=== PATIENT | female | born 1985 | race Caucasian/White ===

== ENCOUNTER 2016-12-24 09:17 | Day surgery (SDC) | payer OTHER ==
[2013-06-29 06:40] VITALS: BP 140/78
[2016-12-24] MEDS ORDERED: DIPRIVAN 200 MG/20 ML IV ONE (10:00)
[2016-12-24] MEDS ORDERED: XYLOCAINE 1% HCL 20 ML MDV ONE (11:20)
--- NOTE | 2016-12-24 13:57 | XRAY ---
Indication: Left L2-L5 MBB. Intraoperative fluoroscopy was provided for 18 seconds. Single digital spot image submitted for interpretation demonstrates 4 posterior spinal needles with the tips adjacent to the left L2-L5 superior facets. Correlate with intraoperative findings/report.
--- NOTE | 2016-12-24 14:36 | XRAY ---
18 seconds of fluoroscopy was used in surgery for a left MBB L2-L5.
[2016-12-24] MEDS ORDERED: Sensorcaine 0.25% 10 ML IJ ONE (15:25)
[2016-12-24] MEDS ORDERED: Kenalog-40 IM ONE (15:25)
[2016-12-24] MEDS ORDERED: Xylocaine 1% Vial 30 ML PF IJ ONE (15:25)
[2016-12-24] MEDS ORDERED: Lactated Ringers IV ONE (15:25)
== END 2016-12-24 12:00 | disposition home or self-care (01) ==
LOC: SDC-PAIN 09:17
PROVIDERS: ATTEND Pain Medicine Interventional Pain Medicine
DX: M47.814 Spondylosis without myelopathy or radiculopathy, thoracic region (principal); M54.5 Low back pain; Z79.891 Long term (current) use of opiate analgesic; M70.72 Other bursitis of hip, left hip
CPT/HCPCS: 64493; 64494; 64495; 72020; 77003; 84703; J2001; J2704; J3301

== ENCOUNTER 2017-01-28 12:18 | Day surgery (SDC) | payer OTHER ==
[2013-06-29 06:40] VITALS: BP 140/78
[~2017-01-28 12:18] MED LIST: DIPRIVAN 200 MG/20 ML IV ONE; Kenalog-40 IM ONE; Lactated Ringers 1,000 ML IV ONE; Sensorcaine 0.25% 10 ML IJ ONE
--- NOTE | 2017-01-28 16:35 | XRAY ---
Indication: Right L2-L5 MBB. Intraoperative fluoroscopy was provided for 13 seconds. Single digital spot image submitted for interpretation demonstrates posterior spinal needles with the tips projecting over the expected course of the right L2-L5 nerve roots. Correlate with intraoperative findings/report.
--- NOTE | 2017-01-28 17:01 | XRAY ---
13 seconds fluoroscopy time in surgery for right L2-5 MBB.
== END 2017-01-28 15:30 | disposition home or self-care (01) ==
LOC: SDC-PAIN 12:18
PROVIDERS: ATTEND Pain Medicine Interventional Pain Medicine
DX: M47.816 Spondylosis without myelopathy or radiculopathy, lumbar region (principal); M54.5 Low back pain; M70.72 Other bursitis of hip, left hip
CPT/HCPCS: 64493; 64494; 64495; 72020; 77003; 84703; J2704; J3301

== ENCOUNTER 2017-03-25 12:09 | Emergency (ER) | payer OTHER ==
[2017-03-25] MEDS ORDERED: TORAdol 30 mg Injection IM ONE (12:39)
--- NOTE | 2017-03-25 12:44 | ERPHSYRPT ---
- History of Present Illness Time Seen by Provider: 03/25/17 12:39 Source: patient Patient Subjective Stated Complaint: co pain to right side of neck woke her up this morning, no injury noted, states pain from right side of neck that radiates down to shoulder and arm Triage Nursing Assessment: pt alert, walked in ,resp easy, no injury noted to neck or arm.,opt is guarding right arm Physician History: 31-year-old white female with history of chronic back pain who is on Jesup also history of migraines polycystic ovary disease. Arrives with complaint of pain on the right lateral and posterior neck right posterior back thoracic region symptoms since awakening this morning. She denies any injury. She is not short of breath she has no chest pain. Past medical history includes migraines, polycystic ovary disease. Timing/Duration: today Severity: moderate Modifying Factors: Improves With: movement Associated Symptoms: other (right-sided back and necck pain since this morning) , No nausea, No vomiting, No abdominal pain, No shortness of breath, No heartburn, No diaphoresis, No cough, No chills, No chest pain, No fever, No headaches, No loss of appetite, No malaise, No rash, No syncope, No seizure, No weakness Allergies/Adverse Reactions: Penicillins Allergy (Verified 03/25/17 12:29) SHE TAKEN AMOXICILLIN Home Medications: Fluoxetine HCl [Prozac] 20 mg PO DAILY 01/26/15 [History] Spironolactone 100 mg PO DAILY 07/13/15 [History] Medroxyprogesterone Acet [Qaiyigr53 mg] 10 mg PO DAILY 01/15/16 [History] Phentermine HCl [Adipex-P] 37.5 mg PO DAILY 01/15/16 [History] Ropinirole HCl 0.5 mg [Requip 0.5 MG] 1 mg PO DAILY 01/15/16 [History] Hydrocodone Bit/Acetaminophen [[place] 5/325Mg] 1 each PO Q6HPRN PRN 11/06/16 [ History] Metformin HCl 500 mg [Glucophage 500 MG] 500 mg BID 03/25/17 [History] Hx Tetanus, Diphtheria Vaccination/Date Given: Yes (UP TO DATE) Hx Influenza Vaccination/Date Given: Yes Hx Pneumococcal Vaccination/Date Given: No Immunizations Up to Date: Yes - Review of Systems Constitutional: No Fever, No Chills Eyes: No Symptoms Ears, Nose, & Throat: No Symptoms Respiratory: No Cough, No Dyspnea Cardiac: No Chest Pain, No Edema, No Syncope Abdominal/Gastrointestinal: No Abdominal Pain, No Nausea, No Vomiting, No Diarrhea Genitourinary Symptoms: No Dysuria Musculoskeletal: Back Pain, Neck Pain, No Deformity, No Fall, No Injury, No Joint Redness, No Joint Pain, No Joint Swelling, No Myalgias Skin: No Rash Neurological: No Dizziness, No Focal Weakness, No Sensory Changes Psychological: No Symptoms Endocrine: No Symptoms All Other Systems: Reviewed and Negative - Past Medical History Pertinent Past Medical History: Yes Neurological History: Migraines ENT History: No Pertinent History Cardiac History: No Pertinent History Respiratory History: No Pertinent History Endocrine Medical History: No Pertinent History Musculoskeletal History: Other GI Medical History: No Pertinent History History: No Pertinent History Female Reproductive Disorders: Other Other Medical History: polycysitic ovarian disease,chronic back pain - Past Surgical History Past Surgical History: No - Social History Smoking Status: Current some day smoker How long have you smoked: 14 Exposure to second hand smoke: No Drug Use: none Patient Lives Alone: No - Female History Hx Last Menstrual Period: 2 months ago Hx Now: No - Nursing Vital Signs Nursing Vital Signs: Initial Vital Signs Temperature 97.8 F Temperature Source Oral Pulse Rate 72 Respiratory Rate 16 Blood Pressure [Left Arm] 135/73 Pain Intensity 8 - Physical Exam General Appearance: mild distress Eye Exam: PERRL/EOMI, eyes nml inspection Ears, Nose, Throat Exam: normal ENT inspection, TMs normal, pharynx normal, moist mucous membranes Neck Exam: normal inspection, supple, other (Right lateral and posterior neck, tender with palpation and movement) Respiratory Exam: normal breath sounds, lungs clear, No respiratory distress Cardiovascular Exam: regular rate/rhythm, normal heart sounds, normal peripheral pulses Gastrointestinal/Abdomen Exam: soft, normal bowel sounds, No tenderness, No mass Back Exam: other (right posterior thoracic region tender with palpation and movement) Extremity Exam: other (decreased range of motion right shoulder secondary to pain in right neck) Neurologic Exam: alert, oriented x 3, cooperative, normal mood/affect, nml cerebellar function, nml station & gait, sensation nml, No motor deficits Skin Exam: normal color, warm, dry, No rash SpO2 Interpretation: normal (98%) SpO2: 98 Oxygen Delivery: Room Air - Course Nursing assessment & vital signs reviewed: Yes - Radiology Exams C-Spine X-ray Interpretation: Discussed w/ radiologist (Cervical spine x-ray : 1. No acute cervical spine fracture, subluxation or prevertebral soft tissue swelling , 2. No significant arthritic changes are seen with in the cervical spine, however, there is mild reversal of the normal cervical lordosis at C4 C5. This may be due to some posterior paravertebral muscle spasm) Chest X-ray Interpretation: Discussed w/ radiologist (chest x-ray no acute cardiopulmonary process is seen) Ordered Tests: Active Orders 24 hr Category Date Time Status CERVICAL SPINE (2 OR 3 VIEW) Stat Exams 03/25/17 12:38 Completed CHEST 2 VIEWS (PA AND LAT) Stat Exams 03/25/17 12:38 Completed HCG QUALITATIVE,SERUM Stat Lab 03/25/17 12:53 Completed Medication Summary Discontinued Medications Generic Name Dose Route Start Last Admin Trade Name Danyel PRN Reason Stop Dose Admin Ketorolac Tromethamine 60 mg 03/25/17 12:39 03/25/17 13:02 Toradol 30 Mg Injection IM 03/25/17 12:40 60 mg STAT ONE Administration Ketorolac Tromethamine Confirm 03/25/17 12:55 Toradol 30 Mg Injection Administered 03/25/17 12:56 Dose 60 mg .ROUTE .STK-MED ONE Lab/Rad Data: Laboratory Results 03/25/17 Range/Units 12:53 Serum , Qual NEGATIVE (Negative) - Progress Progress: improved Progress Note: 03/25/17 14:46 Patient's x-ray of the cervical spine is no acute fracture positive lordosis suspicious for muscle spasm. Patient's x-ray chest no acute cardiopulmonary process is seen. Patient is given Toradol not completely pain-free. Patient was offered Norflex injection she prefers to take oral medications at home. Patient was also offered morphine she declined this. Patient is on Jesup at home we'll have her continue this medication she takes is chronically Will send home with norflex and Naprosyn. 03/25/17 14:51 03/25/17 14:53 Patient was given a computerized prescription for Norflex I did not fill in the quantity therefore I did this manually patient will be given Norflex 100 mg #10 to be taken one orally twice a day. - Departure Time of Disposition: 14:47 Departure Disposition: Home Clinical Impression: Neck pain, musculoskeletal, Cervical paraspinal muscle spasm Back pain Qualifiers: Back pain location: back pain in unspecified location Chronicity: unspecified Back pain laterality: unspecified Qualified Code(s): M54.9 - Dorsalgia, unspecified Condition: Fair Critical Care Time: No Instructions: Cervical Strain Additional Instructions: Return home. norflex 100 mg orally twice a day for 5 days. Naprosyn 500 mg orally twice a day with food as needed for pain #20. Continue oral narcotic analgesics as prescribed by your family doctor/pain quality control expert. Follow-up with your family doctor if symptoms are worse, no better in 48 hours, or persist longer than one week. Return for acute distress or for severe symptoms. Prescriptions: Naproxen [Naprosyn] 500 mg PO BIDWMEALS #20 tablet Orphenadrine Citrate 100 mg [Norflex 100 MG Tablet] 100 mg PO BID #0 tab
[2017-03-25] MEDS ORDERED: TORAdol 30 mg Injection ONE (12:55)
--- NOTE | 2017-03-25 14:08 | XRAY ---
Exam: Two-view chest from 03/25/2017. Comparison: None. Indication: Right-sided back and neck pain. Findings: Upright PA and lateral chest films were obtained. The heart size and contour are normal. The belkis and mediastinal structures appear unremarkable. There is adequate inflation of the lungs. The pulmonary vascularity is normal. The lungs are clear. No pneumothorax or pleural fluid is seen. No acute osseous abnormality is seen. Impression: 1. No acute cardiopulmonary process is seen.
--- NOTE | 2017-03-25 14:14 | XRAY ---
Exam: 3 view cervical spine series from 03/25/2017. Comparison: None. Indication: Right-sided neck and back pain. Findings: AP, open-mouth odontoid, lateral, and a lateral swimmer's view of the cervical spine were obtained. There is slight reversal of the normal lordosis of the cervical spine on the lateral film centered at C4-C5. Correlate clinically regarding posterior paravertebral muscular spasm. I see no acute cervical spine fracture, AP subluxation, or prevertebral soft tissue swelling. The cervical interspace heights are well-maintained. The preodontoid space is normal. No cervical ribs are seen. The uncovertebral joints appear unremarkable. The odontoid process is slightly closer to the lateral mass of C1 on the right as compared to the left. This is probably due to slight patient head rotation. Impression: 1. I see no acute cervical spine fracture, AP subluxation, or prevertebral soft tissue swelling. 2. No significant arthritic changes are seen within the cervical spine. However, there is mild reversal of the normal cervical lordosis centered at C4-C5. This may be due to some posterior paravertebral muscular spasm.
[2017-03-25 14:49] VITALS: O2SAT 98
[2017-03-25 14:56] VITALS: BP 134/80; PULSE 95
== END 2017-03-25 15:04 | disposition home or self-care (01) ==
LOC: ED 12:09
DX: M54.9 Dorsalgia, unspecified (principal); M54.2 Cervicalgia; M79.1 Myalgia; M62.838 Other muscle spasm; Z79.891 Long term (current) use of opiate analgesic; Z79.899 Other long term (current) drug therapy
CPT/HCPCS: 36415; 71020; 72040; 84703; 96372; 99284; J1885

== ENCOUNTER 2017-11-20 06:14 | Emergency (ER) | payer OTHER ==
[2017-11-20 06:25] VITALS: BP 128/98; PULSE 81; O2SAT 97
--- NOTE | 2017-11-20 06:40 | ERPHSYRPT ---
- History of Present Illness Time Seen by Provider: 11/20/17 06:27 Source: patient Exam Limitations: no limitations Patient Subjective Stated Complaint: Left hand and wrist pain Triage Nursing Assessment: Pt presents to the ED with complaints of left hand and wrist pain. Pt states she grabbed an item at work yesterday when the pain began. Pt denies trauma to the hand or wrist. Pt denies other complaints. No distress noted, skin PWD, A&O x4. Physician History: 32-year-old white female arrives with complaint of pain in her left wrist radiating to her hands and upper left arm symptoms since yesterday began while reaching for a clipboard at work. She feels like her left wrist and hand are swollen. She denies any injury. Past medical history includes polycystic ovaries, chronic back pain . Occurred: yesterday Method of Injury: other (reaching for clipboard at work) Quality: constant Severity of Pain-Max: moderate Severity of Pain-Current: moderate (on) Extremities Pain Location: wrist: left, thumb: left, 2nd finger: left, 3rd finger: left Modifying Factors: Improves With: nothing Associated Symptoms: none Allergies/Adverse Reactions: Penicillins Allergy (Verified 03/25/17 12:29) SHE TAKEN AMOXICILLIN Home Medications: Fluoxetine HCl [Prozac] 20 mg PO DAILY 01/26/15 [History] Spironolactone 100 mg PO DAILY 07/13/15 [History] Phentermine HCl [Adipex-P] 37.5 mg PO DAILY 01/15/16 [History] Ropinirole HCl 0.5 mg [Requip 0.5 MG] 1 mg PO DAILY 01/15/16 [History] Hydrocodone Bit/Acetaminophen [[place] 5/325Mg] 1 each PO Q6HPRN PRN 11/06/16 [ History] Metformin HCl 500 mg [Glucophage 500 MG] 500 mg BID 03/25/17 [History] Meloxicam [Mobic] 15 mg PO 10/20/17 [History] Tizanidine HCl 4 mg [Zanaflex 4 MG] 4 mg PO 10/20/17 [History] Hx Tetanus, Diphtheria Vaccination/Date Given: Yes Hx Influenza Vaccination/Date Given: Yes Hx Pneumococcal Vaccination/Date Given: No Immunizations Up to Date: Yes - Review of Systems Constitutional: No Fever, No Chills Eyes: No Symptoms Ears, Nose, & Throat: No Symptoms Respiratory: No Cough, No Dyspnea Cardiac: No Chest Pain, No Edema, No Syncope Abdominal/Gastrointestinal: No Abdominal Pain, No Nausea, No Vomiting, No Diarrhea Genitourinary Symptoms: No Dysuria Musculoskeletal: Other (pain in her left wrist radiating up left fingers 1,2,3 occasionally radiating up her leftarm) Skin: No Rash Neurological: No Dizziness, No Focal Weakness, No Sensory Changes Psychological: No Symptoms Endocrine: No Symptoms All Other Systems: Reviewed and Negative - Past Medical History Pertinent Past Medical History: Yes Neurological History: Migraines ENT History: No Pertinent History Cardiac History: No Pertinent History Respiratory History: No Pertinent History Endocrine Medical History: No Pertinent History Musculoskeletal History: Other GI Medical History: No Pertinent History History: No Pertinent History Female Reproductive Disorders: Other Other Medical History: polycysitic ovarian disease,chronic back pain - Past Surgical History Past Surgical History: No - Social History Smoking Status: Current every day smoker How long have you smoked: 15 years Exposure to second hand smoke: Yes Drug Use: none Patient Lives Alone: No - Female History Hx Last Menstrual Period: 11/05/2017 Hx Now: No - Nursing Vital Signs Nursing Vital Signs: Initial Vital Signs Temperature 97.8 F 11/20/17 06:18 Pulse Rate 81 11/20/17 06:18 Respiratory Rate 16 11/20/17 06:18 Blood Pressure 128/98 11/20/17 06:18 O2 Sat by Pulse Oximetry 97 11/20/17 06:18 Pain Scale Pain Intensity 10 - Physical Exam General Appearance: alert Eyes, Ears, Nose, Throat Exam: moist mucous membranes Neck Exam: non-tender, supple Cardiovascular/Respiratory Exam: chest non-tender, normal breath sounds, regular rate/rhythm, no respiratory distress Abdominal Exam: non-tender, No guarding Back Exam: normal inspection, No vertebral tenderness Shoulder Exam: normal inspection, non-tender, no evidence of injury, normal ROM Elbow/Forearm Exam: normal inspection, non-tender, no evidence of injury, normal ROM Wrist Exam: No normal inspection (left wrist tender with percussion anteriorly, decreased range of motion left wrist secondary to pain, full range of motion left fingers, sensation intact left fingers, left radial ulnar pulses intact 2 / 4, sensation intactleft fingers good capillary refill left fingers, Phalen's negative left wrist, atenolol's pain with percussion only left wrist) Hand Exam: normal inspection, non-tender, no evidence of injury, normal ROM Neuro/Tendon Exam: normal sensation, normal motor functions Mental Status Exam: alert, oriented x 3, cooperative Skin Exam: normal color, warm, dry SpO2 Interpretation: normal (97%) SpO2: 97 Oxygen Delivery: Room Air - Course Nursing assessment & vital signs reviewed: Yes - Radiology Exams Left Wrist X-ray Interpretation: Interpreted by me, No Fracture, No Subluxation Ordered Tests: Active Orders 24 hr Category Date Time Status EKG-ER Only STAT Care 11/20/17 07:14 Inactive Splint STAT Care 11/20/17 07:06 Active WRIST (MIN 3 VIEWS) Stat Exams 11/20/17 06:35 Taken HCG QUALITATIVE,SERUM Stat Lab 11/20/17 06:49 Completed Respiratory Nebulizer STAT RT 11/20/17 07:13 Inactive Medication Summary Discontinued Medications Generic Name Dose Route Start Last Admin Trade Name Danyel PRN Reason Stop Dose Admin Albuterol/Ipratropium 3 ml 11/20/17 07:12 Duoneb 0.5-3 Mg/3 Ml Neb IH 11/20/17 07:13 STAT ONE Albuterol/Ipratropium Confirm 11/20/17 07:24 Duoneb 0.5-3 Mg/3 Ml Neb Administered 11/20/17 07:25 Dose 3 ml IH .STK-MED ONE Ceftriaxone Sodium/Dextrose 1 g in 50 mls @ 100 mls/hr 11/20/17 07:12 Rocephin 1 Gm-D5w 50 Ml Bag IV 11/20/17 07:41 STAT STA Methylprednisolone Sodium Succinate 125 mg 11/20/17 07:12 Solu-Medrol 125 Mg IV 11/20/17 07:13 STAT ONE Lab/Rad Data: Laboratory Results 11/20/17 Range/Units 06:49 Serum , Qual NEGATIVE (Negative) - Departure Time of Disposition: 07:35 Departure Disposition: Home Clinical Impression: Wrist pain, left Condition: Fair Critical Care Time: No Referrals: FRANCY TALAVERA [Primary Care Provider] - Additional Instructions: Return home. Ice and elevate your left wrist 24-48 hours. Wear wristlet for one week. continue mobic as prescribed by tour family doctor, Follow-up with your company physician. Return for acute distress or for severe symptoms.
[2017-11-20] MEDS ORDERED: solu-MEDROL 125 MG IV ONE (07:12)
[2017-11-20] MEDS ORDERED: ROCEPHIN 1 Gm-D5w 50 ml Bag** 1 G/50 ML IVPB IV STA (07:12)
[2017-11-20] MEDS ORDERED: DUONEB 0.5-3 MG/3 ml Neb IH ONE ×2 (07:12→07:24)
--- NOTE | 2017-11-20 09:38 | XRAY ---
Indication: Pain. No known injury. Comparison: None 3 views of the left wrist demonstrates shortening of the ulna at least 6-7 mm relative to the radius favoring negative ulnar variance, commonly associated with [place]ienb[place] disease and ulnar impingement syndrome. No other bony, articular, or soft tissue abnormalities.
== END 2017-11-20 07:57 | disposition home or self-care (01) ==
LOC: ED 06:14
DX: M25.532 Pain in left wrist (principal); X50.1XXA Overexertion from prolonged static or awkward postures, initial encounter; Y99.0 Civilian activity done for income or pay; Z79.899 Other long term (current) drug therapy
CPT/HCPCS: 36415; 73110; 84703; 99282; L3908; A9270-GY

== ENCOUNTER 2017-12-13 19:09 | Emergency (ER) | payer OTHER ==
[2017-12-13] MEDS ORDERED: PROVENTIL 2.5 MG/3 ML NEB IH ONE ×2 (19:37→19:50)
[2017-12-13] MEDS ORDERED: Sodium Chloride 0.9% 1000 ML 1,000 ML IV STA (19:44)
--- NOTE | 2017-12-13 19:44 | ERPHSYRPT ---
- History of Present Illness Time Seen by Provider: 12/13/17 19:28 Historian: patient Exam Limitations: no limitations Patient Subjective Stated Complaint: pt states she thinks she has a uti, states she has been having urinary frequency and lower back pain on lt side. had fever at home of 102.4 Triage Nursing Assessment: pt alert and oriented, answers questions approp. pt ambulatory with limping gait noted- pt states d/t chronic back pain. respirations nonlabored with lungs cta. abd soft and nontender. bowel sounds present. urine cloudy yellow. Physician History: FOR THE PAST 6 DAYS PT HAS HAD URINARY URGENCY; FOR THE PAST 4 DAYS A NON- PRODUCTIVE COUGH; TODAY VOMITING X1 WITHOUT BLOOD, LEFT LOWER BACK PAIN, FRONTAL HEADACHE AND FEVER UP TO 102.4 DEGREES. PT HAS HAD CHRONIC LOWER MID ABDOMINAL PAIN FOR YEARS WHICH HAS INCREASED TODAY. LAST BM WAS YESTERDAY & WNL. Allergies/Adverse Reactions: No Known Drug Allergies Allergy (Verified 12/13/17 19:33) Home Medications: Fluoxetine HCl [Prozac] 20 mg PO DAILY 01/26/15 [History] Spironolactone 100 mg PO DAILY 07/13/15 [History] Phentermine HCl [Adipex-P] 37.5 mg PO DAILY 01/15/16 [History] Ropinirole HCl 0.5 mg [Requip 0.5 MG] 1 mg PO DAILY 01/15/16 [History] Hydrocodone Bit/Acetaminophen [[place] 5/325Mg] 1 each PO Q12H PRN PRN 11/06/16 [ History] Metformin HCl 500 mg [Glucophage 500 MG] 500 mg BID 03/25/17 [History] Meloxicam [Mobic] 15 mg PO BID 10/20/17 [History] Tizanidine HCl 4 mg [Zanaflex 4 MG] 4 mg PO HS 10/20/17 [History] Omeprazole 20 MG [Prilosec 20 mg] 20 mg PO DAILY 12/07/17 [History] Hx Tetanus, Diphtheria Vaccination/Date Given: Yes Hx Influenza Vaccination/Date Given: Yes Hx Pneumococcal Vaccination/Date Given: No Immunizations Up to Date: Yes - Review of Systems Constitutional: Fever Respiratory: Cough, No Dyspnea Cardiac: No Chest Pain Abdominal/Gastrointestinal: Abdominal Pain, Vomiting, No Diarrhea Genitourinary Symptoms: Urgency Musculoskeletal: Back Pain Neurological: Headache All Other Systems: Reviewed and Negative - Past Medical History Pertinent Past Medical History: Yes Neurological History: Migraines ENT History: No Pertinent History Cardiac History: No Pertinent History Respiratory History: No Pertinent History Endocrine Medical History: No Pertinent History Musculoskeletal History: Other GI Medical History: No Pertinent History History: No Pertinent History Female Reproductive Disorders: Other Other Medical History: polycysitic ovarian disease,chronic back pain - Past Surgical History Past Surgical History: No - Social History Smoking Status: Current every day smoker How long have you smoked: 15 years Exposure to second hand smoke: Yes Drug Use: none Patient Lives Alone: No - Female History Hx Last Menstrual Period: last month- irreg Hx Now: No - Nursing Vital Signs Nursing Vital Signs: Initial Vital Signs Temperature 99.4 F 12/13/17 19:18 Pulse Rate 108 H 12/13/17 19:18 Respiratory Rate 18 12/13/17 19:18 Blood Pressure 104/90 12/13/17 19:18 O2 Sat by Pulse Oximetry 99 12/13/17 19:18 Pain Scale Pain Intensity 5 - Physical Exam General Appearance: alert Eye Exam: PERRL/EOMI Ears, Nose, Throat Exam: TMs normal, pharynx normal, moist mucous membranes Neck Exam: normal inspection Respiratory Exam: wheezing (SCATTERED EXPIRATORY WHEEZING) Cardiovascular Exam: normal heart sounds Gastrointestinal/Abdomen Exam: soft, normal bowel sounds, tenderness (MILD SUPRAPUBIC TENDERNESS), No guarding Back Exam: normal range of motion, No CVA tenderness Extremity Exam: normal inspection, No pedal edema Neurologic Exam: alert, cooperative Skin Exam: warm, dry SpO2 Interpretation: normal SpO2: 99 Oxygen Delivery: Room Air - Course Nursing assessment & vital signs reviewed: Yes Ordered Tests: Active Orders 24 hr Category Date Time Status IV Insertion STAT Care 12/13/17 19:44 Active AMYLASE Stat Lab 12/13/17 20:09 Completed CBC W DIFF Stat Lab 12/13/17 20:09 Completed CMP Stat Lab 12/13/17 20:09 Completed CULTURE,URINE Stat Lab 12/13/17 19:43 Received HCG QUALITATIVE,SERUM Stat Lab 12/13/17 20:09 Completed LIPASE Stat Lab 12/13/17 20:09 Completed MAGNESIUM Stat Lab 12/13/17 20:09 Completed UA W/ MICROSCOPIC Stat Lab 12/13/17 19:43 Completed Respiratory Nebulizer STAT RT 12/13/17 19:38 Completed Medication Summary Discontinued Medications Generic Name Dose Route Start Last Admin Trade Name Danyel PRN Reason Stop Dose Admin Acetaminophen Confirm 12/13/17 21:49 Tylenol 325 Mg Administered 12/13/17 21:50 Dose 650 mg .ROUTE .STK-MED ONE Acetaminophen 650 mg 12/13/17 21:52 12/13/17 21:54 Tylenol 325 Mg PO 12/13/17 21:53 650 mg STAT STA Administration Albuterol Sulfate 2.5 mg 12/13/17 19:37 12/13/17 19:53 Proventil 2.5 Mg/3 Ml Neb IH 12/13/17 19:38 2.5 mg STAT ONE Administration Albuterol Sulfate Confirm 12/13/17 19:50 Proventil 2.5 Mg/3 Ml Neb Administered 12/13/17 19:51 Dose 2.5 mg IH .STK-MED ONE Sodium Chloride 1,000 mls @ 999 mls/hr 12/13/17 19:44 12/13/17 20:12 Sodium Chloride 0.9% 1000 Ml IV 12/13/17 20:44 999 mls/hr .Q1H1M STA Administration Sodium Chloride Confirm 12/13/17 20:10 Sodium Chloride 0.9% 1000 Ml Administered 12/13/17 20:11 Dose 1,000 mls @ ud .ROUTE .STK-MED ONE Ceftriaxone Sodium/Dextrose 1 g in 50 mls @ 100 mls/hr 12/13/17 20:51 20:56 Rocephin 1 Gm-D5w 50 Ml Bag IV 12/13/17 21:20 100 mls/hr STAT STA Administration Ceftriaxone Sodium/Dextrose Confirm 12/13/17 20:55 Rocephin 1 Gm-D5w 50 Ml Bag Administered 12/13/17 20:56 Dose 1 g in 50 mls @ ud IV .STK-MED ONE Lab/Rad Data: Laboratory Result Diagrams 12/13/17 20:09 12/13/17 20:09 Laboratory Results 12/13/17 12/13/17 12/13/17 Range/Units 20:09 20:09 20:09 WBC (4.0-10.5) K/mm3 RBC (4.1-5.4) M/mm3 Hgb (12.0-16.0) gm/dl Hct (35-47) % MCV (78-100) fl MCH (26-32) pg MCHC (32-36) g/dl RDW (11.5-14.0) % Plt Count (150-450) K/mm3 MPV (6-9.5) fl Gran % (36.0-66.0) % Lymphocytes % (24.0-44.0) % Monocytes % (0.0-12.0) % Eosinophils % (0.00-5.0) % Basophils % (0.0-0.4) % Basophils # (0-0.4) Sodium 138 (137-145) mmol/L Potassium 3.7 (3.5-5.1) mmol/L Chloride 98 (98-107) mEq/L Carbon Dioxide 30 (22-30) mmol/L Anion Gap 13.7 (5-15) MEQ/L BUN 12 (7-17) mg/dl Creatinine 0.94 (0.52-1.04) mg/dl Estimated GFR > 60 ML/MIN Glucose 101 (74-106) mg/dL Calcium 9.4 (8.4-10.2) mg/dL Magnesium 1.9 (1.6-2.3) mg/dL Total Bilirubin 0.40 (0.2-1.3) mg/d? AST 19 (14-36) U/L ALT 22 (0-35) U/L Alkaline Phosphatase 58 (38-126) U/L Serum Total Protein 7.5 (6.3-8.2) mg/dl Albumin 4.2 (3.5-5.0) g/dl Amylase 40 (30-110) U/L Lipase 40 (23-300) U/L Serum , Qual NEGATIVE (Negative) Ur Collection Type Urine Color (YELLOW) Urine Appearance (CLEAR) Urine pH (5-6) Ur Specific [place] (1.005-1.025) Urine Protein (Negative) Urine Ketones (NEGATIVE) Urine Blood (0-5) Chris/ul Urine Nitrite (NEGATIVE) Urine Bilirubin (NEGATIVE) Urine Urobilinogen (0-1) mg/dL Ur Leukocyte Esterase (NEGATIVE) Urine Microscopic RBC (0-2) /HPF Urine Microscopic WBC (0-5) /HPF Ur Epithelial Cells (FEW) /HPF Urine Bacteria (NEGATIVE) /HPF Urine Culture Reflexed (NO) Urine Glucose (NEGATIVE) mg/dL Specimen Received 12/13/17 12/13/17 Range/Units 20:09 19:43 WBC 10.6 H (4.0-10.5) K/mm3 RBC 4.98 (4.1-5.4) M/mm3 Hgb 14.4 (12.0-16.0) gm/dl Hct 43.2 (35-47) % MCV 86.7 (78-100) fl MCH 28.9 (26-32) pg MCHC 33.3 (32-36) g/dl RDW 14.0 (11.5-14.0) % Plt Count 282 (150-450) K/mm3 MPV 10.3 H (6-9.5) fl Gran % 77.9 H (36.0-66.0) % Lymphocytes % 11.6 L (24.0-44.0) % Monocytes % 9.7 (0.0-12.0) % Eosinophils % 0.6 (0.00-5.0) % Basophils % 0.2 (0.0-0.4) % Basophils # 0.02 (0-0.4) Sodium (137-145) mmol/L Potassium (3.5-5.1) mmol/L Chloride (98-107) mEq/L Carbon Dioxide (22-30) mmol/L Anion Gap (5-15) MEQ/L BUN (7-17) mg/dl Creatinine (0.52-1.04) mg/dl Estimated GFR ML/MIN Glucose (74-106) mg/dL Calcium (8.4-10.2) mg/dL Magnesium (1.6-2.3) mg/dL Total Bilirubin (0.2-1.3) mg/d? AST (14-36) U/L ALT (0-35) U/L Alkaline Phosphatase (38-126) U/L Serum Total Protein (6.3-8.2) mg/dl Albumin (3.5-5.0) g/dl Amylase (30-110) U/L Lipase (23-300) U/L Serum , Qual (Negative) Ur Collection Type CLEAN CATCH Urine Color YELLOW (YELLOW) Urine Appearance SLIGHTLY CLOUDY (CLEAR) Urine pH 6.0 (5-6) Ur Specific [place] 1.010 (1.005-1.025) Urine Protein TRACE (Negative) Urine Ketones NEGATIVE (NEGATIVE) Urine Blood 250 (0-5) Chris/ul Urine Nitrite POSITIVE (NEGATIVE) Urine Bilirubin NEGATIVE (NEGATIVE) Urine Urobilinogen NORMAL (0-1) mg/dL Ur Leukocyte Esterase 2+ (NEGATIVE) Urine Microscopic RBC 5-10 (0-2) /HPF Urine Microscopic WBC 50-100 (0-5) /HPF Ur Epithelial Cells MODERATE (FEW) /HPF Urine Bacteria FEW (NEGATIVE) /HPF Urine Culture Reflexed YES (NO) Urine Glucose NEGATIVE (NEGATIVE) mg/dL Specimen Received 12/13/171944 - Progress Progress Note: 12/13/17 22:24 LUNGS CLEAR AFTER ALBUTEROL TX. - Departure Time of Disposition: 22:29 Departure Disposition: Home Clinical Impression: UTI Condition: Stable Critical Care Time: No Referrals: FRANCY TALAVERA [Primary Care Provider] - Instructions: Urinary Tract Infection, Adult (DC) Additional Instructions: FOLLOW UP WITH PRIVATE DOCTOR TOMORROW. Prescriptions: Promethazine HCl 25 mg [Phenergan 25 mg] 25 mg PO Q4H PRN PRN #14 tablet PRN Reason: Nausea/Vomiting Phenazopyridine HCl 200 mg [Pyridium 200 mg] 200 mg PO TID #7 tablet Smz/Tmp Ds Tablet [Bactrim Ds Tablet] 1 udtab PO BID #20 tablet
[2017-12-13] MEDS ORDERED: Sodium Chloride 0.9% 1000 ML 1,000 ML ONE (20:10)
[2017-12-13 20:14] LABS: BASOPHIL % 0.2 % (0.0-0.4); Basophil (Absolute #) 0.02 (0-0.4); Eosinophil % 0.6 % (0.00-5.0); Eosinophil (Absolute #) 0.06 (0-0.5); Granulocytes % 77.9 % (36.0-66.0); Hematocrit 43.2 % (35-47); Hemoglobin 14.4 gm/dl (12.0-16.0); Lymphocyte (Absolute #) 1.23 (1.0-4.6); Lymphocytes % 11.6 % (24.0-44.0); Mean Cell Volume 86.7 fl (78-100); Mean Corpuscular Hemoglobin 28.9 pg (26-32); Mean Corpuscular Hgb Concent. 33.3 g/dl (32-36); Mean Platelet Volume 10.3 fl (6-9.5); Monocyte (Absolute #) 1.03 (0.0-1.3); Monocytes % 9.7 % (0.0-12.0); Platelet Count 282 K/mm3 (150-450); Red Blood Count 4.98 M/mm3 (4.1-5.4); White Blood Count 10.6 K/mm3 (4.0-10.5)
[2017-12-13 20:20] LABS: Appearance SLIGHTLY CLOUDY (CLEAR); Bilirubin NEGATIVE (NEGATIVE); Blood 250 Ery/ul (0-5); Glucose NEGATIVE (NEGATIVE); Ketones NEGATIVE (NEGATIVE); Leukocyte Esterase 2+ (NEGATIVE); Nitrite POSITIVE (NEGATIVE); Protein,Urine Dip TRACE (Negative); Urobilinogen NORMAL mg/dL (0-1)
[2017-12-13 20:21] LABS: Bacteria FEW /HPF (NEGATIVE); Epithelial Cells MODERATE /HPF (FEW); WBC 50-100 /HPF (0-5)
[2017-12-13 20:35] LABS: ALBUMIN 4.2 g/dl (3.5-5.0); ALKALINE PHOSPHATASE 58 U/L (38-126); AMYLASE 40 U/L (30-110); ANION GAP 13.7 MEQ/L (5-15); BLOOD UREA NITROGEN 12 mg/dl (7-17); CHLORIDE 98 mEq/L (98-107); Calcium 9.4 mg/dL (8.4-10.2); Carbon Dioxide 30 mmol/L (22-30); Creatinine 1 0.94 mg/dl (0.52-1.04); Glucose 101 mg/dL (74-106); LIPASE 40 U/L (23-300); Potassium 3.7 mmol/L (3.5-5.1); SGOT/AST 19 U/L (14-36); SGPT/ALT 22 U/L (0-35); SODIUM 138 mmol/L (137-145); Total Protein 7.5 mg/dl (6.3-8.2)
[2017-12-13] MEDS ORDERED: ROCEPHIN 1 Gm-D5w 50 ml Bag** 1 G/50 ML IVPB IV STA (20:51)
[2017-12-13] MEDS ORDERED: ROCEPHIN 1 Gm-D5w 50 ml Bag** 1 G/50 ML IVPB IV ONE (20:55)
[2017-12-13] MEDS ORDERED: TYLENOL 325 MG ONE (21:49)
[2017-12-13] MEDS ORDERED: TYLENOL 325 MG PO STA (21:52)
[2017-12-13 23:12] VITALS: BP 130/82; PULSE 92; O2SAT 100
== END 2017-12-13 22:45 | disposition home or self-care (01) ==
LOC: ED 19:09
DX: N39.0 Urinary tract infection, site not specified (principal); R05 Cough; M54.5 Low back pain; R51 Headache
CPT/HCPCS: 36000; 36415; 80053; 81000; 82150; 83690; 83735; 84703; 85025; 87086; 94640; 96360; 96365; 99283; 99284; J0696; A9270-GY

== ENCOUNTER 2018-05-28 18:54 | Emergency (ER) | payer SELFPAY ==
[2018-05-28] MEDS ORDERED: MOTRIN 400 MG PO ONE (19:16)
[2018-05-28] MEDS ORDERED: KEFLEX 500 MG PO ONE (19:16)
[2018-05-28] MEDS ORDERED: KEFLEX 500 MG ONE (19:18)
[2018-05-28] MEDS ORDERED: MOTRIN 400 MG ONE (19:19)
--- NOTE | 2018-05-28 19:19 | ERPHSYRPT ---
- History of Present Illness Time Seen by Provider: 05/28/18 19:12 Source: patient Patient Subjective Stated Complaint: fell on picture frame and cut right hand Triage Nursing Assessment: Pt fell over laundry and landed on a picture frame and cut her right hand on medial side, no other issues Physician History: PATIENT WITH A HISTORY OF CHRONIC BACK PAIN AND DEPRESSION, TRIPPED OVER HER CLOTHES AND SUSTAINED LACERATION TO HER RIGHT HAND OF GLASS FRAME. DENIES ASSOCIATED HEAD, NECK OR BACK INJURY, NUMBNESS, TINGLING IN DIGITS. Occurred: just prior to arrival Method of Injury: direct blow, fell Quality: constant Severity of Pain-Max: moderate Severity of Pain-Current: moderate Extremities Pain Location: wrist: right, hand: right Modifying Factors: Improves With: movement Allergies/Adverse Reactions: No Known Drug Allergies Allergy (Verified 05/28/18 19:07) Home Medications: Fluoxetine HCl [Prozac] 30 mg PO DAILY 01/26/15 [History] RX: Spironolactone 25 mg PO DAILY 07/13/15 [History] Ropinirole HCl 0.5 mg [Requip 0.5 MG] 2 mg PO DAILY 01/15/16 [History] Hydrocodone Bit/Acetaminophen [[place] 5/325Mg] 1 each PO Q12H PRN PRN 11/06/16 [ History] RX: Metformin HCl 500 mg [Glucophage 500 MG] 500 mg BID 03/25/17 [History] Hx Tetanus, Diphtheria Vaccination/Date Given: (couple of years ago) Hx Influenza Vaccination/Date Given: Yes Hx Pneumococcal Vaccination/Date Given: No - Review of Systems Constitutional: No Fever, No Chills Respiratory: No Cough, No Dyspnea Cardiac: No Chest Pain, No Edema, No Syncope Abdominal/Gastrointestinal: No Abdominal Pain, No Nausea, No Vomiting, No Diarrhea Genitourinary Symptoms: No Dysuria Musculoskeletal: Injury, Joint Pain, Joint Swelling, No Back Pain, No Neck Pain Skin: No Rash Neurological: No Dizziness, No Focal Weakness, No Sensory Changes Psychological: No Symptoms - Past Medical History Pertinent Past Medical History: Yes Neurological History: Migraines ENT History: No Pertinent History Cardiac History: No Pertinent History Respiratory History: Asthma Endocrine Medical History: No Pertinent History Musculoskeletal History: Degenerative Disk Disease, Other GI Medical History: No Pertinent History History: No Pertinent History Female Reproductive Disorders: Other Other Medical History: history of buldging disc. - Past Surgical History Past Surgical History: No Other Surgical History: medial blocks - Social History Smoking Status: Current every day smoker How long have you smoked: 15 years Exposure to second hand smoke: Yes Drug Use: none Patient Lives Alone: No - Female History Hx Last Menstrual Period: 6 months ago Hx Now: No (PCOS) - Nursing Vital Signs Nursing Vital Signs: Initial Vital Signs Temperature 98.6 F 05/28/18 18:59 Pulse Rate 71 05/28/18 18:59 Blood Pressure 157/112 05/28/18 18:59 O2 Sat by Pulse Oximetry 100 05/28/18 18:59 Pain Scale Pain Intensity 8 - Physical Exam General Appearance: alert Wrist Exam: normal inspection, soft tissue tenderness (TENDERNESS DORSUM RIGHT WRIST ULNAR ASPECT, NO SWELLING OR CREPITUS OR ECCHYMOSIS) Hand Exam: soft tissue tenderness, swelling (THERE IS A 1.5CM RIGHT MID 5TH METACARPAL, NO ECCHYMOSIS OR CREPITUS, FULL RANGE OF MOTION ALL DIGITS.) DTR - Upper Extremity Exam: bicep (R): 2+, bicep (L): 2+, tricep (R): 2+, tricep (L): 2+ SpO2 Interpretation: normal SpO2: 100 Oxygen Delivery: Room Air Procedures - Laceration/Wound Repair Right Hand Wound Location: Right, hand Wound Length (cm): 1.5 Wound's Depth, Shape: into muscle, linear Wound Explored: clean Irrigated: Yes Hibiclens Prep: Yes Anesthesia: local, 2% Lidocaine Volume Anesthetic (ccs): 4 Wound Repaired With: sutures Suture Size/Type: 4-0 Number of Sutures: 5 Sterile Dressing Applied?: Yes Ordered Tests: Active Orders 24 hr Category Date Time Status Cold Application STAT Care 05/28/18 19:08 Active Wound Care STAT Care 05/28/18 20:16 Active HAND (MINIMUM 3 VIEWS) Stat Exams 05/28/18 19:16 Taken WRIST (MIN 3 VIEWS) Stat Exams 05/28/18 19:20 Taken Medication Summary Discontinued Medications Generic Name Dose Route Start Last Admin Trade Name Freq PRN Reason Stop Dose Admin Bacitracin Zinc Confirm 05/28/18 19:57 Baciguent Packet Administered 05/28/18 19:58 Dose 1 gm .ROUTE .STK-MED ONE Bacitracin Zinc 0.9 gm 05/28/18 20:16 Baciguent Packet TP 05/28/18 20:17 STAT ONE Cephalexin HCl 500 mg 05/28/18 19:16 05/28/18 19:21 Keflex 500 Mg PO 05/28/18 19:17 500 mg STAT ONE Administration Cephalexin HCl Confirm 05/28/18 19:18 Keflex 500 Mg Administered 05/28/18 19:19 Dose 500 mg .ROUTE .STK-MED ONE Ibuprofen 400 mg 05/28/18 19:16 05/28/18 19:22 Motrin 400 Mg PO 05/28/18 19:17 400 mg STAT ONE Administration Ibuprofen Confirm 05/28/18 19:19 Motrin 400 Mg Administered 05/28/18 19:20 Dose 400 mg .ROUTE .STK-MED ONE Lidocaine HCl Confirm 05/28/18 19:56 Xylocaine 2% Hcl 20 Ml Mdv Administered 05/28/18 19:57 Dose 5 ml .ROUTE .STK-MED ONE Lidocaine HCl Confirm 05/28/18 19:57 Xylocaine 2% Hcl 20 Ml Mdv Administered 05/28/18 19:58 Dose 5 ml .ROUTE .STK-MED ONE Lidocaine HCl Confirm 05/28/18 19:58 Xylocaine 1% Hcl 20 Ml Mdv Administered 05/28/18 19:59 Dose 5 ml .ROUTE .STK-MED ONE Lidocaine HCl 5 ml 05/28/18 20:16 Xylocaine 1% Hcl 20 Ml Mdv IJ 05/28/18 20:17 STAT ONE - Progress Progress: improved Counseled pt/family regarding: diagnosis, need for follow-up, rad results - Departure Time of Disposition: 20:24 Departure Disposition: Home Clinical Impression: LACERATION/CONTUSION RIGHT HAND Condition: Stable Critical Care Time: No Referrals: FRANCY TALAVERA [Primary Care Provider] - Additional Instructions: ANTIBIOTIC AUGMENTIN 875MG TWICE DAILY FOR 10 DAYS. TAKE OVER THE COUNTER MOTRIN 400MG EVERY 6 HOURS FOR PAIN AND SWELLING. HAVE STITCHES REMOVED AT 10 DAYS. APPLY ICE OVER HAND SWELLING WITH ELEVATION EVERY 4 HOURS, 30 MINUTES FOR 48 HOURS. WATCH FOR SIGNS OF INFECTION, REDNESS, SWELLING OR DRAINAGE. CONSULT YOUR PRIMARY CARE PROVIDER FOR EVALUATION IN 1 WEEK. Prescriptions: Amox Tr/Potass Clav. 875 mg [Augmentin 875-125 Tablet] 875 mg PO BID #20 tablet
[2018-05-28] MEDS ORDERED: XYLOCAINE 2% HCL 20 ML MDV ONE ×2 (19:56→19:57)
[2018-05-28] MEDS ORDERED: BACIGUENT PACKET ONE (19:57)
[2018-05-28] MEDS ORDERED: XYLOCAINE 1% HCL 20 ML MDV ONE (19:58)
[2018-05-28] MEDS ORDERED: XYLOCAINE 1% HCL 20 ML MDV IJ ONE (20:16)
[2018-05-28] MEDS ORDERED: BACIGUENT PACKET TP ONE (20:16)
[2018-05-28 20:29] VITALS: BP 140/93; PULSE 76; O2SAT 99
--- NOTE | 2018-05-28 22:22 | XRAY ---
Indication: Laceration. Comparison: March 25, 2016. 3 views of the right hand demonstrates bandage material overlying the 5th metacarpal. No other bony, articular, or soft tissue abnormalities. Wrist reported separately.
--- NOTE | 2018-05-28 22:22 | XRAY ---
Indication: Laceration. Comparison: March 25, 2016. 3 views of the right wrist demonstrates bandage material overlying the 5th metacarpal. New scapholunate widening concerning for underlying ligamentous tear. No other bony, articular, or soft tissue abnormalities.
== END 2018-05-28 20:32 | disposition home or self-care (01) ==
LOC: ED 18:54
PROC: 0HQFXZZ Repair Right Hand Skin, External Approach (ICD-10-PCS; principal; 2018-05-28)
DX: S61.411A Laceration without foreign body of right hand, initial encounter (principal); W01.110A Fall on same level from slipping, tripping and stumbling with subsequent striking against sharp glass, initial encounter; Y92.009 Unspecified place in unspecified non-institutional (private) residence as the place of occurrence of the external cause; Z79.899 Other long term (current) drug therapy
CPT/HCPCS: 12001; 73110; 73130; 96372; 99284; A9270-GY

== ENCOUNTER 2019-05-18 12:58 | Day surgery (SDC) | payer OTHER ==
[2013-06-29 06:40] VITALS: BP 140/78
[2019-05-18] MEDS ORDERED: Depo-Medrol 40 MG/ML IM ONE (12:59)
[2019-05-18] MEDS ORDERED: Marcaine 0.5% SDV 10 ML IJ ONE (12:59)
[2019-05-18] MEDS ORDERED: DIPRIVAN 200 MG/20 ML IV ONE (13:50)
[2019-05-18] MEDS ORDERED: Ketamine HCl 50 MG/ML ONE (13:50)
--- NOTE | 2019-05-18 14:34 | XRAY ---
Indication: Bilateral SI joint injection. Intraoperative fluoroscopy was provided for 22 seconds. 4 digital spot images submitted for interpretation demonstrates posterior needle tip projecting over the inferior left and right SI joint. Correlate with intraoperative findings/report.
--- NOTE | 2019-05-18 14:34 | XRAY ---
22 seconds fluoroscopy time in surgery for bilateral SI joint injections.
[2019-05-18] MEDS ORDERED: Lactated Ringers 1,000 ML IV ONE (15:26)
== END 2019-05-18 14:18 | disposition home or self-care (01) ==
LOC: SDC-PAIN 12:58
PROVIDERS: ATTEND Psychiatry & Neurology Pain Medicine
DX: M46.1 Sacroiliitis, not elsewhere classified (principal); Z79.899 Other long term (current) drug therapy
CPT/HCPCS: 72202; 77002; 84703; G0260; 27096; J1030; J2704

== ENCOUNTER 2019-06-15 09:02 | Day surgery (SDC) | payer OTHER ==
[2019-06-15] MEDS ORDERED: Depo-Medrol 40 MG/ML IM ONE (09:03)
[2019-06-15] MEDS ORDERED: Marcaine 0.5% SDV 10 ML IJ ONE (09:03)
[2019-06-15] MEDS ORDERED: DUONEB 0.5-3 MG/3 ml Neb IH ONE (09:51)
[2019-06-15] MEDS ORDERED: Ketamine HCl 50 MG/ML ONE (09:54)
[2019-06-15] MEDS ORDERED: DIPRIVAN 200 MG/20 ML IV ONE (09:54)
[2019-06-15 10:01] VITALS: PULSE 76; O2SAT 97
[2019-06-15] MEDS ORDERED: Lactated Ringers 1,000 ML IV ONE (12:47)
--- NOTE | 2019-06-16 02:07 | XRAY ---
Indication: Right SI joint injection. Intraoperative fluoroscopy was provided for 10 seconds. AP and lateral digital spot films demonstrate the needle tip to be in the projection of the lower right SI joint. Correlate with intraoperative findings/report.
--- NOTE | 2019-06-16 12:12 | XRAY ---
10 seconds fluoroscopy time in surgery for right SI joint injection.
== END 2019-06-15 10:25 | disposition home or self-care (01) ==
LOC: SDC-PAIN 09:02
PROVIDERS: ATTEND Psychiatry & Neurology Pain Medicine
DX: M46.1 Sacroiliitis, not elsewhere classified (principal); Z79.899 Other long term (current) drug therapy
CPT/HCPCS: 72020; 77002; 84703; 94150; 94640; G0260; 27096; J1030; J2704; A9270-GY

== ENCOUNTER 2020-08-31 00:22 | Emergency (ER) | payer OTHER ==
--- NOTE | 2020-08-31 01:13 | ERPHSYRPT ---
- History of Present Illness Time Seen by Provider: 08/31/20 01:08 Source: patient, family Exam Limitations: no limitations Physician History: pt was seen here at urgent care recently and has had a mass left neck since about Aug without resolution. she had a cxr she was told was normal ( we confirmed the normal CXR report from 14 Aug [address] Figueroa) and CBC and started on Keflex. no fever , no resp symptoms, no vomiting, no cough , no ST or dental symptoms , swallowing OK. nodul is mildly tender. there is a small area post neck which bueno snot seem con nected but is erythematous with excoriated scab and minimal induration. Timing/Duration: gradual onset, weeks Severity: moderate Prearrival Treatment: prescription meds Modifying Factors: Improves With: nothing Associated Symptoms: other (left nodule), No ear pain (R), No ear pain (L), No cough, No fever, No dizziness, No drooling, No facial pain/swelling, No headache, No jaw pain, No nasal congestion/drainage, No sinus infection, No sore throat, No tooth pain, No difficulty swallowing, No voice change Allergies/Adverse Reactions: No Known Drug Allergies Allergy (Verified 08/31/20 01:35) Home Medications: Fluoxetine HCl [Prozac] 30 mg PO DAILY 01/26/15 [History] Spironolactone 25 mg PO DAILY 07/13/15 [History] Ropinirole HCl 0.5 mg [Requip 0.5 MG] 2 mg PO DAILY 01/15/16 [History] Hydrocodone Bit/Acetaminophen [[place] 5/325Mg] 1 each PO Q12H PRN PRN 11/06/16 [History] Metformin HCl 500 mg [Glucophage 500 MG] 500 mg BID 03/25/17 [History] Hx Tetanus, Diphtheria Vaccination/Date Given: (couple of years ago) Hx Influenza Vaccination/Date Given: Yes Hx Pneumococcal Vaccination/Date Given: No - Review of Systems Constitutional: No Fever, No Chills Eyes: No Symptoms Ears, Nose, & Throat: Other (left cervical mass) Respiratory: No Cough, No Dyspnea Cardiac: No Chest Pain, No Edema, No Syncope Abdominal/Gastrointestinal: No Abdominal Pain, No Nausea, No Vomiting, No Diarrhea Genitourinary Symptoms: No Dysuria Musculoskeletal: No Back Pain, No Neck Pain Skin: No Rash Neurological: No Dizziness, No Focal Weakness, No Sensory Changes Psychological: No Symptoms Endocrine: No Symptoms All Other Systems: Reviewed and Negative - Past Medical History Pertinent Past Medical History: Yes Neurological History: No Pertinent History ENT History: No Pertinent History Cardiac History: No Pertinent History Respiratory History: Asthma Endocrine Medical History: No Pertinent History Musculoskeletal History: Arthritis GI Medical History: No Pertinent History History: No Pertinent History Psycho-Social History: No Pertinent History Female Reproductive Disorders: Other Other Medical History: history of buldging disc. - Past Surgical History Past Surgical History: No Neuro Surgical History: No Pertinent History Cardiac: No Pertinent History Respiratory: No Pertinent History Gastrointestinal: No Pertinent History Genitourinary: No Pertinent History Musculoskeletal: No Pertinent History Female Surgical History: No Pertinent History Other Surgical History: medial blocks - Social History Smoking Status: Current every day smoker How long have you smoked: 15 years Exposure to second hand smoke: Yes Drug Use: none Patient Lives Alone: No - Nursing Vital Signs Nursing Vital Signs: Initial Vital Signs Pulse Rate 103 H 08/31/20 00:59 Respiratory Rate 20 08/31/20 00:59 Blood Pressure 165/98 08/31/20 00:59 O2 Sat by Pulse Oximetry 99 08/31/20 00:59 Pain Scale Pain Intensity [Left Neck] 8 Pain Intensity 8 - Physical Exam General Appearance: no apparent distress, alert Eye Exam: bilateral eye: normal inspection, PERRL, EOMI Ear Exam: bilateral ear: auricle normal, canal normal, TM normal Nasal Exam: normal inspection Throat Exam: pharynx normal, moist mucus membranes, No tonsillar exudate Neck Exam: supple, full range of motion, trachea midline Cardiovascular/Respiratory Exam: normal breath sounds, regular rate/rhythm Abdominal Exam: non-tender, soft Neurologic Exam: alert, oriented x 3, integration project manager II-XII nml as tested, sensation nml, No motor deficits Skin Exam: normal color, warm, dry SpO2 Interpretation: normal SpO2: 99 O2 Delivery: Room Air - Course Nursing assessment & vital signs reviewed: Yes - CT Exams Soft Tissue Neck CT Interpretation: Tele-radiologist Report, Other (left neck mass - no abscess to drain) Ordered Tests: Active Orders 24 hr Category Date Time Status NECK WO CONTRAST [CT] Stat Exams 11/27/20 01:16 Taken CBC W DIFF Stat Lab 08/31/20 01:47 Completed Lab/Rad Data: Laboratory Result Diagrams 08/31/20 01:47 Laboratory Results 08/31/20 Range/Units 01:47 WBC 7.5 (4.0-10.5) K/mm3 RBC 4.71 (4.1-5.4) M/mm3 Hgb 14.0 (12.0-16.0) gm/dl Hct 41.9 (35-47) % MCV 89.0 (78-100) fl MCH 29.7 (26-32) pg MCHC 33.4 (32-36) g/dl RDW 13.9 (11.5-14.0) % Plt Count 284 (150-450) K/mm3 MPV 10.2 (7.5-11.0) fl Gran % 53.6 (36.0-66.0) % Eos # (Auto) 0.18 (0-0.5) Absolute Lymphs (auto) 2.34 (1.0-4.6) Absolute Monos (auto) 0.92 (0.0-1.3) Lymphocytes % 31.2 (24.0-44.0) % Monocytes % 12.3 H (0.0-12.0) % Eosinophils % 2.4 (0.00-5.0) % Basophils % 0.5 (0.0-0.4) % Absolute Granulocytes 4.01 (1.4-6.9) Basophils # 0.04 (0-0.4) - Progress Progress: improved, re-examined Progress Note: 08/31/20 02:30 pt has been advised that there is some chance this could be a lymphoma or other cancer and thus the need to see her to consider a biopsy. Counseled pt/family regarding: lab results, diagnosis, need for follow-up, rad results - Departure Departure Disposition: Home Clinical Impression: left cervical mass Condition: Good Critical Care Time: No Referrals: FRANCY TALAVERA [Primary Care Provider] - Additional Instructions: there is a left cervical mass which may just be an enlarged lymph gland from infection, but requires followup with your DrWyatt to consider a biopsy, which is sometimes performed if a node has persisted for a few weeks without shrinking. return meantime if any fever, trouble swallowing, or other symptoms of concern. see your DrWyatt to recheck your blood pressure also. Prescriptions: Doxycycline Hyclate 100 mg [Vibramycin 100 MG] 100 mg PO BID #20 tab
[2020-08-31 01:54] LABS: Absolute Neutrophil Ct (ANC) 4.01 (1.4-6.9); BASOPHIL % 0.5 % (0.0-0.4); Basophil (Absolute #) 0.04 (0-0.4); Eosinophil % 2.4 % (0.00-5.0); Eosinophil (Absolute #) 0.18 (0-0.5); Hematocrit 41.9 % (35-47); Lymphocyte (Absolute #) 2.34 (1.0-4.6); Lymphocytes % 31.2 % (24.0-44.0); Mean Corpuscular Hemoglobin 29.7 pg (26-32); Mean Corpuscular Hgb Concent. 33.4 g/dl (32-36); Mean Platelet Volume 10.2 fl (7.5-11.0); Monocyte (Absolute #) 0.92 (0.0-1.3); Monocytes % 12.3 % (0.0-12.0); Neutrophil % 53.6 % (36.0-66.0); Platelet Count 284 K/mm3 (150-450); Red Blood Count 4.71 M/mm3 (4.1-5.4); Red Cell Distribution Width 13.9 % (11.5-14.0); White Blood Count 7.5 K/mm3 (4.0-10.5)
[2020-08-31] MEDS ORDERED: Vibramycin 100 MG PO ONE (02:32)
[2020-08-31] MEDS ORDERED: Vibramycin 100 MG ONE (02:34)
[2020-08-31 03:02] VITALS: BP 152/88; PULSE 89; O2SAT 100
--- NOTE | 2020-08-31 08:21 | XRAY ---
Indication: Left neck knot. Multiple contiguous axial images obtained through the neck without contrast as ordered. Cutaneous BB placed over the region of interest. Comparison: None Left supraclavicular region demonstrates a 2.6 x 2.2 x 2.4 cm soft tissue mass with surrounding haziness possibly lymphadenopathy and corresponds to cutaneous BB. There are also multiple small scattered small cervical and submandibular lymph nodes bilaterally presumed reactive. Largest measures 1.2 x 0.8 cm just posterior to the left submandibular gland. Parotid and submandibular glands are bilaterally symmetric. 1 cm right thyroid hypodense nodule/cyst. Enlarged palatine tonsils narrows the oropharynx. Remaining supra and infraglottic airway are patent. Cervical spine intact with mild lordotic reversal, positional versus paraspinal spasm. Floor of the right maxillary sinus demonstrates mild mucosal thickening. A few dental caries. Remaining base of the brain and lung apices are unremarkable. Impression: 1. Left supraclavicular soft tissue mass as detailed. Rule out lymphadenopathy. 2. Incidental enlarged palatine tonsils, right thyroid nodule/cyst, cervical lordotic reversal, right maxillary sinus disease, and dental caries. Comment: Preliminary interpretation was made by [facility]. No critical discrepancy.
== END 2020-08-31 03:02 | disposition home or self-care (01) ==
LOC: ED 00:22
DX: R22.1 Localized swelling, mass and lump, neck (principal)
CPT/HCPCS: 36415; 70490; 85025; 99284; A9270-GY

== ENCOUNTER 2021-03-13 14:33 | Day surgery (SDC) | payer OTHER ==
[2013-06-29 06:40] VITALS: BP 140/78
[2021-03-13] MEDS ORDERED: BUPIVACAINE 0.5% VIAL IJ ONE (14:34)
[2021-03-13] MEDS ORDERED: Depo-Medrol 40 MG/ML IM ONE (14:34)
[2021-03-13] MEDS ORDERED: Lactated Ringers 1,000 ML IV ONE (15:44)
[2021-03-13] MEDS ORDERED: DIPRIVAN 200 MG/20 ML IV ONE (15:45)
--- NOTE | 2021-03-13 17:02 | XRAY ---
35 seconds fluoroscopy time in surgery for injections of bilateral SI joints.
--- NOTE | 2021-03-13 17:12 | XRAY ---
Indication: Bilateral SI joint injection. Intraoperative fluoroscopy provided for 35 seconds. 3 digital spot image submitted for interpretation demonstrates posterior needle tip projecting over the inferior left and right SI joint. Correlate with intraoperative findings/report.
== END 2021-03-13 16:11 | disposition home or self-care (01) ==
LOC: SDC-PAIN 14:33
PROVIDERS: ATTEND Psychiatry & Neurology Pain Medicine
DX: M46.1 Sacroiliitis, not elsewhere classified (principal); E66.9 Obesity, unspecified; G43.909 Migraine, unspecified, not intractable, without status migrainosus; Z79.899 Other long term (current) drug therapy
CPT/HCPCS: 27096; 72202; 77002; 84703; J1030; J2704; G0260

== ENCOUNTER 2021-04-10 14:59 | Day surgery (SDC) | payer OTHER ==
[2013-06-29 06:40] VITALS: BP 140/78
[~2021-04-10 14:59] MED LIST changes: -DIPRIVAN 200 MG/20 ML IV ONE; -Kenalog-40 IM ONE; -Sensorcaine 0.25% 10 ML IJ ONE
[2021-04-10] MEDS ORDERED: Xylocaine 1% Vial 30 ML PF IJ ONE (15:00)
[2021-04-10] MEDS ORDERED: BUPIVACAINE 0.5% VIAL IJ ONE (15:00)
[2021-04-10] MEDS ORDERED: Depo-Medrol 40 MG/ML IM ONE (15:00)
[2021-04-10] MEDS ORDERED: DIPRIVAN 200 MG/20 ML IV ONE (15:43)
--- NOTE | 2021-04-10 16:57 | XRAY ---
Indication: Bilateral hip injections. Intraoperative fluoroscopy provided for 42 seconds. 2 digital spot image submitted for interpretation demonstrates needle tip lateral to the left and right femur neck. Small amount of contrast injected for both needle tip placement. Correlate with intraoperative findings/report.
--- NOTE | 2021-04-10 17:01 | XRAY ---
42 seconds fluorosopcy time in surgery for bilateral intra-articular injections of the hips.
== END 2021-04-10 16:17 | disposition home or self-care (01) ==
LOC: SDC-PAIN 14:59
PROVIDERS: ATTEND Psychiatry & Neurology Pain Medicine
DX: M16.0 Bilateral primary osteoarthritis of hip (principal); Z79.899 Other long term (current) drug therapy
CPT/HCPCS: 20610; 73521; 77002; 84703; J1030; J2001; J2704; Q9966

== ENCOUNTER 2021-04-27 12:24 | Emergency (ER) | payer OTHER ==
[2021-04-27] MEDS ORDERED: Hydromorphone 1 mg/ml Injection IV ONE (13:29)
[2021-04-27] MEDS ORDERED: Sodium Chloride 0.9% 1000 ML 1,000 ML IV STA (13:29)
[2021-04-27] MEDS ORDERED: Zofran 4 MG/2 ML VIAL IV ONE (13:29)
[2021-04-27] MEDS ORDERED: Zofran 4 MG/2 ML VIAL ONE (13:37)
[2021-04-27] MEDS ORDERED: Sodium Chloride 0.9% 1000 ML 1,000 ML ONE (13:37)
[2021-04-27] MEDS ORDERED: Hydromorphone 1 mg/ml Injection ONE (13:37)
[2021-04-27 13:49] LABS: Absolute Neutrophil Ct (ANC) 5.49 (1.4-6.9); BASOPHIL % 0.1 % (0.0-0.4); Basophil (Absolute #) 0.01 (0-0.4); Eosinophil % 3.5 % (0.00-5.0); Eosinophil (Absolute #) 0.29 (0-0.5); Hematocrit 45.9 % (35-47); Lymphocyte (Absolute #) 1.71 (1.0-4.6); Lymphocytes % 20.8 % (24.0-44.0); Mean Cell Volume 86.4 fl (78-100); Mean Corpuscular Hemoglobin 28.2 pg (26-32); Mean Corpuscular Hgb Concent. 32.7 g/dl (32-36); Mean Platelet Volume 10.4 fl (7.5-11.0); Monocyte (Absolute #) 0.72 (0.0-1.3); Monocytes % 8.8 % (0.0-12.0); Neutrophil % 66.8 % (36.0-66.0); Platelet Count 342 K/mm3 (150-450); Red Blood Count 5.31 M/mm3 (4.1-5.4); Red Cell Distribution Width 14.7 % (11.5-14.0); White Blood Count 8.2 K/mm3 (4.0-10.5)
[2021-04-27 14:00] LABS: ALBUMIN 4.6 g/dL (3.5-5.0); ALKALINE PHOSPHATASE 64 U/L (38-126); AMYLASE 58 U/L (30-110); ANION GAP 17.4 MEQ/L (5-15); BLOOD UREA NITROGEN 12 mg/dL (7-17); CHLORIDE 101 mmol/L (98-107); Calcium 9.4 mg/dL (8.4-10.2); Carbon Dioxide 24 mmol/L (22-30); Creatinine 1 0.71 mg/dL (0.52-1.04); EST GLOMERULAR FILTRATION RATE > 60.0 ML/MIN; Glucose 105 mg/dL (74-106); LIPASE 49 U/L (23-300); Potassium 3.8 mmol/L (3.5-5.1); SGOT/AST 29 U/L (14-36); SGPT/ALT 27 U/L (0-35); SODIUM 139 mmol/L (137-145)
[2021-04-27 15:43] LABS: Appearance SLIGHTLY CLOUDY (CLEAR); Bacteria RARE /HPF (NEGATIVE); Bilirubin NEGATIVE (NEGATIVE); Blood MODERATE Ery/ul (0-5); Epithelial Cells RARE /HPF (FEW); Glucose NEGATIVE (NEGATIVE); Ketones NEGATIVE (NEGATIVE); Leukocyte Esterase NEGATIVE (NEGATIVE); Mucus MODERATE /HPF (NEGATIVE); Nitrite NEGATIVE (NEGATIVE); Protein,Urine Dip 100 (Negative); Specific Gravity 1.028 (1.005-1.025); Urobilinogen 2 mg/dL (0-1)
[2021-04-27 15:54] VITALS: BP 111/75; PULSE 84; O2SAT 96
--- NOTE | 2021-04-27 16:11 | ERPHSYRPT ---
- History of Present Illness Time Seen by Provider: 04/27/21 13:00 Historian: patient Exam Limitations: no limitations Patient Subjective Stated Complaint: pt here for lower abd pain for a couple days with some burping and one loose stool, no fever . pt states they increased her ozmpic Triage Nursing Assessment: pt alert, resp easy, face mask in place, skin w/d/p. abd soft Physician History: Is a 36-year-old female who presents with complaint of 2 episodes of severe lower abdominal crampy pain. The first was yesterday but did resolve then this morning she had a recurrent episode both episodes were associated with excessive burping which left a bad taste in the mouth and smells very soft. According to the patient. She has vomited once and has 1 watery stool. She has had no fever chills or sweats she has no history of abdominal surgery she does have a history of polycystic ovary syndrome. Timing/Duration: yesterday Activities at Onset: none Quality: cramping Abdominal Pain Onset Location: suprapubic Pain Radiation: no radiation Severity of Pain-Max: severe Severity of Pain-Current: mild Modifying Factors: Improves With: defecating, vomiting Associated Symptoms: diarrhea, loss of appetite, nausea Previous symptoms: same symptoms as today Allergies/Adverse Reactions: No Known Drug Allergies Allergy (Verified 04/27/21 13:00) Home Medications: Ropinirole HCl 0.5 mg [Requip 0.5 MG] 2 mg PO DAILY 01/15/16 [History] Hydrocodone Bit/Acetaminophen [Dell 5/325Mg] 1 each PO Q12H PRN PRN 11/06/16 [History] Metformin HCl 500 mg [Glucophage 500 MG] 500 mg BID 03/25/17 [History] Buspirone HCl [Buspar] 1 ea BID 04/27/21 [History] Semaglutide [Ozempic] 1 ea WEEKLY 04/27/21 [History] Venlafaxine HCl 37.5 mg [Effexor 37.5 mg] 1 ea DAILY 04/27/21 [History] Hx Tetanus, Diphtheria Vaccination/Date Given: (couple of years ago) Hx Influenza Vaccination/Date Given: Yes Hx Pneumococcal Vaccination/Date Given: No Immunizations Up to Date: Yes Travel Risk - International Travel Have you traveled outside of the country in past 3 weeks: No - Coronavirus Screening Are you exhibiting any of the following symptoms?: No Close contact with a COVID-19 positive Pt in past 14-21 Days: No - Vaccine Status Have you recieved a Covid-19 vaccination: No - Review of Systems Constitutional: No Fever, No Chills Eyes: No Symptoms Ears, Nose, & Throat: No Symptoms Respiratory: No Cough, No Dyspnea Cardiac: No Chest Pain, No Edema, No Syncope Abdominal/Gastrointestinal: Abdominal Pain, Nausea, Vomiting, Diarrhea Genitourinary Symptoms: No Dysuria Musculoskeletal: No Back Pain, No Neck Pain Skin: No Rash Neurological: No Dizziness, No Focal Weakness, No Sensory Changes Psychological: No Symptoms Endocrine: No Symptoms All Other Systems: Reviewed and Negative - Past Medical History Pertinent Past Medical History: Yes Neurological History: Migraines ENT History: No Pertinent History Cardiac History: No Pertinent History Respiratory History: Asthma Endocrine Medical History: No Pertinent History Musculoskeletal History: Degenerative Disk Disease, Osteoarthritis GI Medical History: No Pertinent History History: No Pertinent History Psycho-Social History: No Pertinent History Female Reproductive Disorders: Other Other Medical History: OTHER PMHX: BILATERAL CARPAL TUNNEL (NO SURGERY), RESTLESS LEG, DEPRESSION, POS - Past Surgical History Past Surgical History: No Neuro Surgical History: No Pertinent History Cardiac: No Pertinent History Respiratory: No Pertinent History Gastrointestinal: No Pertinent History Genitourinary: No Pertinent History Musculoskeletal: No Pertinent History Female Surgical History: No Pertinent History Other Surgical History: medial blocks - Social History Smoking Status: Current every day smoker How long have you smoked: 15 years Exposure to second hand smoke: Yes Drug Use: none Patient Lives Alone: No - Female History Hx Last Menstrual Period: this week Hx Now: No - Nursing Vital Signs Nursing Vital Signs: Initial Vital Signs Temperature 96.8 F 04/27/21 12:52 Pulse Rate 104 H 04/27/21 12:52 Respiratory Rate 18 04/27/21 12:52 Blood Pressure 134/74 04/27/21 12:52 O2 Sat by Pulse Oximetry 95 04/27/21 12:52 Pain Scale Pain Intensity 3 - Physical Exam General Appearance: mild distress, alert Eye Exam: PERRL/EOMI, eyes nml inspection Ears, Nose, Throat Exam: normal ENT inspection, pharynx normal, moist mucous membranes Neck Exam: normal inspection, non-tender, supple, full range of motion Respiratory Exam: normal breath sounds, lungs clear, No respiratory distress Cardiovascular Exam: regular rate/rhythm, normal heart sounds Gastrointestinal/Abdomen Exam: soft, normal bowel sounds, tenderness, No mass, No guarding, No rebound Back Exam: normal inspection, normal range of motion, No CVA tenderness, No vertebral tenderness Extremity Exam: normal inspection, normal range of motion, pelvis stable Neurologic Exam: alert, oriented x 3, cooperative, normal mood/affect, nml cerebellar function, sensation nml, No motor deficits Skin Exam: normal color, warm, dry SpO2: 96 - Course Nursing assessment & vital signs reviewed: Yes - CT Exams Abdomen/Pelvis CT Interpretation: Tele-radiologist Report, Other (No acute findings) Ordered Tests: Active Orders 24 hr Category Date Time Status IV Insertion STAT Care 04/27/21 13:29 Active ABDOMEN AND PELVIS W CONTRAST [CT] Stat Exams 04/27/21 13:30 Taken AMYLASE Stat Lab 04/27/21 13:47 Completed CBC W DIFF Stat Lab 04/27/21 13:47 Completed CMP Stat Lab 04/27/21 13:47 Completed CULTURE,URINE Stat Lab 04/27/21 15:40 Received HCG QUALITATIVE,SERUM Stat Lab 04/27/21 13:47 Completed LIPASE Stat Lab 04/27/21 13:47 Completed Lactic Acid Stat Lab 04/27/21 13:29 Completed UA W/RFX UR CULTURE Stat Lab 04/27/21 15:40 Completed Medication Summary Discontinued Medications Generic Name Dose Route Start Last Admin Trade Name Freq PRN Reason Stop Dose Admin Hydromorphone HCl 1 mg 04/27/21 13:29 04/27/21 13:40 Hydromorphone 1 Mg/Ml Injection IV 04/27/21 13:30 1 mg STAT ONE Administration Hydromorphone HCl Confirm 04/27/21 13:37 Hydromorphone 1 Mg/Ml Injection Administered 04/27/21 13:38 Dose 1 mg .ROUTE .STK-MED ONE Sodium Chloride 1,000 mls @ 999 mls/hr 04/27/21 13:29 04/27/21 15:00 Sodium Chloride 0.9% 1000 Ml IV 04/27/21 14:29 Infused .Q1H1M STA Infusion Sodium Chloride Confirm 04/27/21 13:37 Sodium Chloride 0.9% 1000 Ml Administered 04/27/21 13:38 Dose 1,000 mls @ ud .ROUTE .STK-MED ONE Ondansetron HCl 4 mg 04/27/21 13:29 04/27/21 13:40 Zofran 4 Mg/2 Ml Vial IV 04/27/21 13:30 4 mg STAT ONE Administration Ondansetron HCl Confirm 04/27/21 13:37 Zofran 4 Mg/2 Ml Vial Administered 04/27/21 13:38 Dose 4 mg .ROUTE .STK-MED ONE Lab/Rad Data: Laboratory Result Diagrams 04/27/21 13:47 04/27/21 13:47 Laboratory Results 04/27/21 04/27/21 04/27/21 Range/Units 15:40 13:47 13:47 WBC (4.0-10.5) K/mm3 RBC (4.1-5.4) M/mm3 Hgb (12.0-16.0) gm/dl Hct (35-47) % MCV (78-100) fl MCH (26-32) pg MCHC (32-36) g/dl RDW (11.5-14.0) % Plt Count (150-450) K/mm3 MPV (7.5-11.0) fl Gran % (36.0-66.0) % Eos # (Auto) (0-0.5) Absolute Lymphs (auto) (1.0-4.6) Absolute Monos (auto) (0.0-1.3) Lymphocytes % (24.0-44.0) % Monocytes % (0.0-12.0) % Eosinophils % (0.00-5.0) % Basophils % (0.0-0.4) % Absolute Granulocytes (1.4-6.9) Basophils # (0-0.4) Sodium 139 (137-145) mmol/L Potassium 3.8 (3.5-5.1) mmol/L Chloride 101 (98-107) mmol/L Carbon Dioxide 24 (22-30) mmol/L Anion Gap 17.4 H (5-15) MEQ/L BUN 12 (7-17) mg/dL Creatinine 0.71 (0.52-1.04) mg/dL Estimated GFR > 60.0 ML/MIN Glucose 105 (74-106) mg/dL Lactic Acid (0.4-2.0) Calcium 9.4 (8.4-10.2) mg/dL Total Bilirubin 0.30 (0.2-1.3) mg/dL AST 29 (14-36) U/L ALT 27 (0-35) U/L Alkaline Phosphatase 64 (38-126) U/L Serum Total Protein 8.0 (6.3-8.2) g/dL Albumin 4.6 (3.5-5.0) g/dL Amylase 58 (30-110) U/L Lipase 49 (23-300) U/L Serum , Qual NEGATIVE (Negative) Urine Color BRADY (YELLOW) Urine Appearance SLIGHTLY CLOUDY (CLEAR) Urine pH 5.0 (5-6) Ur Specific Saxis 1.028 (1.005-1.025) Urine Protein 100 (Negative) Urine Ketones NEGATIVE (NEGATIVE) Urine Blood MODERATE (0-5) Chris/ul Urine Nitrite NEGATIVE (NEGATIVE) Urine Bilirubin NEGATIVE (NEGATIVE) Urine Urobilinogen 2 (0-1) mg/dL Ur Leukocyte Esterase NEGATIVE (NEGATIVE) Urine WBC (Auto) 3-5 (0-5) /HPF Urine RBC (Auto) 3-5 (0-2) /HPF U Epithel Cells (Auto) RARE (FEW) /HPF Urine Bacteria (Auto) RARE (NEGATIVE) /HPF Urine Mucus (Auto) MODERATE (NEGATIVE) /HPF Urine Culture Reflexed YES (NO) Urine Glucose NEGATIVE (NEGATIVE) mg/dL 04/27/21 04/27/21 Range/Units 13:47 13:29 WBC 8.2 (4.0-10.5) K/mm3 RBC 5.31 (4.1-5.4) M/mm3 Hgb 15.0 (12.0-16.0) gm/dl Hct 45.9 (35-47) % MCV 86.4 (78-100) fl MCH 28.2 (26-32) pg MCHC 32.7 (32-36) g/dl RDW 14.7 H (11.5-14.0) % Plt Count 342 (150-450) K/mm3 MPV 10.4 (7.5-11.0) fl Gran % 66.8 H (36.0-66.0) % Eos # (Auto) 0.29 (0-0.5) Absolute Lymphs (auto) 1.71 (1.0-4.6) Absolute Monos (auto) 0.72 (0.0-1.3) Lymphocytes % 20.8 L (24.0-44.0) % Monocytes % 8.8 (0.0-12.0) % Eosinophils % 3.5 (0.00-5.0) % Basophils % 0.1 (0.0-0.4) % Absolute Granulocytes 5.49 (1.4-6.9) Basophils # 0.01 (0-0.4) Sodium (137-145) mmol/L Potassium (3.5-5.1) mmol/L Chloride (98-107) mmol/L Carbon Dioxide (22-30) mmol/L Anion Gap (5-15) MEQ/L BUN (7-17) mg/dL Creatinine (0.52-1.04) mg/dL Estimated GFR ML/MIN Glucose (74-106) mg/dL Lactic Acid 1.4 (0.4-2.0) Calcium (8.4-10.2) mg/dL Total Bilirubin (0.2-1.3) mg/dL AST (14-36) U/L ALT (0-35) U/L Alkaline Phosphatase (38-126) U/L Serum Total Protein (6.3-8.2) g/dL Albumin (3.5-5.0) g/dL Amylase (30-110) U/L Lipase (23-300) U/L Serum , Qual (Negative) Urine Color (YELLOW) Urine Appearance (CLEAR) Urine pH (5-6) Ur Specific Saxis (1.005-1.025) Urine Protein (Negative) Urine Ketones (NEGATIVE) Urine Blood (0-5) Chris/ul Urine Nitrite (NEGATIVE) Urine Bilirubin (NEGATIVE) Urine Urobilinogen (0-1) mg/dL Ur Leukocyte Esterase (NEGATIVE) Urine WBC (Auto) (0-5) /HPF Urine RBC (Auto) (0-2) /HPF U Epithel Cells (Auto) (FEW) /HPF Urine Bacteria (Auto) (NEGATIVE) /HPF Urine Mucus (Auto) (NEGATIVE) /HPF Urine Culture Reflexed (NO) Urine Glucose (NEGATIVE) mg/dL - Progress Progress: unchanged Progress Note: 04/27/21 16:09 Pain was improved at the time of discharge - Departure Departure Disposition: Home Clinical Impression: Abdominal pain Condition: Stable Critical Care Time: No Referrals: FRANCY TALAVERA [Primary Care Provider] - Instructions: Acute Abdomen (Belly Pain), Adult (DC)
--- NOTE | 2021-04-27 19:28 | XRAY ---
Indication: Abdomen pain, nausea, and vomiting. Multiple contiguous axial images obtained through the abdomen and pelvis using 100 cc Isovue 370 contrast. Comparison: None Lung bases are clear. Heart not enlarged. Noncontrasted stomach and bowel loops appear nonobstructed. Appendix not seen. No free fluid/air. Fatty hepatomegaly measuring 19.1 cm and splenomegaly measuring 14.4 cm. Remaining liver, gallbladder, pancreas, spleen, adrenal glands, kidneys, ureters, bladder, uterus, and aorta are unremarkable. No pathologic retroperitoneal lymphadenopathy. Osseous structures intact. Impression: 1. Fatty hepatomegaly and splenomegaly. 2. Remaining CT abdomen/pelvis with contrast exam negative. Comment: Preliminary interpretation made by [facility]. No critical discrepancy.
== END 2021-04-27 16:16 | disposition home or self-care (01) ==
LOC: ED 12:24
DX: R10.9 Unspecified abdominal pain (principal)
CPT/HCPCS: 36000; 36415; 74177; 80053; 81001; 81025; 82150; 83605; 83690; 85025; 87086; 96360; 96374; 96375; 99284; J1170; J2405

== ENCOUNTER 2021-05-08 12:30 | Day surgery (SDC) | payer OTHER ==
[2013-06-29 06:40] VITALS: BP 140/78
[2021-05-08] MEDS ORDERED: BUPIVACAINE 0.5% VIAL IJ ONE (12:31)
[2021-05-08] MEDS ORDERED: Depo-Medrol 40 MG/ML IM ONE (12:31)
[2021-05-08] MEDS ORDERED: DIPRIVAN 200 MG/20 ML IV ONE ×2 (13:56→14:05)
--- NOTE | 2021-05-09 11:53 | XRAY ---
19 seconds of fluoroscopy was used in surgery for a left SI joint injection.
--- NOTE | 2021-05-09 12:03 | XRAY ---
17 seconds of fluoroscopy was used in surgery for a left intra-articular hip injection.
--- NOTE | 2021-05-12 00:29 | XRAY ---
Indication: Left SI joint injection. Intraoperative fluoroscopy was provided for 19 seconds. A single lateral digital spot image submitted for interpretation demonstrates the posterior needle tip projected over the lower aspect of the sacroiliac joint. Correlate with intraoperative findings/report.
--- NOTE | 2021-05-12 00:31 | XRAY ---
Indication: Left intra-articular hip injection (done in the prone position). Intraoperative fluoroscopy was provided for 17 seconds. A single digital spot image submitted for interpretation demonstrates the single needle tip projected over the upper lateral margin of the right femoral neck. A small amount of contrast has been injected for needle tip placement. Correlate with intraoperative findings/report.
== END 2021-05-08 14:27 | disposition home or self-care (01) ==
LOC: SDC-PAIN 12:30
PROVIDERS: ATTEND Psychiatry & Neurology Pain Medicine
DX: M46.1 Sacroiliitis, not elsewhere classified (principal); M16.12 Unilateral primary osteoarthritis, left hip; Z79.899 Other long term (current) drug therapy
CPT/HCPCS: 20610; 27096; 72020; 73501; 77002; 84703; J1030; J2704; Q9966; G0260

== ENCOUNTER 2021-06-07 03:52 | Emergency (ER) | payer OTHER ==
[2021-06-07] MEDS ORDERED: MORPHINE SULFATE 2 MG INJ IV ONE (04:37)
[2021-06-07] MEDS ORDERED: Sodium Chloride 0.9% 1000 ML 1,000 ML IV STA (04:37)
[2021-06-07] MEDS ORDERED: MORPHINE SULFATE 4 MG INJ IV ONE ×2 (04:37→07:02)
--- NOTE | 2021-06-07 04:45 | ERPHSYRPT ---
- History of Present Illness Historian: patient Exam Limitations: no limitations Patient Subjective Stated Complaint: pt states, "I feel like I'm having a gallbladder attack". Triage Nursing Assessment: pt c/o RUQ pain, with pain shooting thru to back and Lt shoulder blade. Pt c/o nausea x2 days, no vomiting, but diarrhea. Pt states, "I have reflux that tastes like sulfur". Abd soft with hypoactive bs x4 quad, tender upon palpation. Timing/Duration: day(s) Activities at Onset: none Quality: aching Abdominal Pain Onset Location: RUQ Pain Radiation: scapula, back Severity of Pain-Max: moderate Severity of Pain-Current: mild Modifying Factors: Improves With: nothing Associated Symptoms: denies symptoms, nausea, No chest pain, No diarrhea, No shortness of breath, No vomiting Previous symptoms: same symptoms as today Hx Tetanus, Diphtheria Vaccination/Date Given: Yes Hx Influenza Vaccination/Date Given: No Hx Pneumococcal Vaccination/Date Given: No Immunizations Up to Date: Yes - History of Present Illness Time Seen by Provider: 06/07/21 03:58 Physician History: Patient is a 36-year-old female presents to our ED with complaints of right upper quadrant pain. Patient has been experiencing right upper quadrant pain for the past several days. Patient followed up with her primary care doctor yesterday who ordered an outpatient gallbladder ultrasound. Per report the gallbladder ultrasound was nonremarkable. Patient is mildly nauseous. Nausea has been going on for 2 days. No vomiting. No diarrhea. Patient has a history of reflux. Patient states her reflux is somewhat worse than normal. She describes a sulfur taste in her mouth. Right upper quadrant pain is localized however she occasionally feels a shooting sensation into her back and shoulder blade. No trauma. No fever. Symptoms are mild to moderate in intensity. No specific worsening improving factors. Patient voices no other complaints or concerns at this time. (DANGELO BHATIA) Allergies/Adverse Reactions: No Known Drug Allergies Allergy (Verified 06/07/21 04:09) Home Medications: Ropinirole HCl 0.5 mg [Requip 0.5 MG] 2 mg PO DAILY 01/15/16 [History] Hydrocodone Bit/Acetaminophen [Sidney 5/325Mg] 1 each PO TID PRN PRN 11/06/16 [History] Buspirone HCl [Buspar] 1 ea PO BID 04/27/21 [History] Semaglutide [Ozempic] 1 ea WEEKLY 04/27/21 [History] Venlafaxine HCl 37.5 mg [Effexor 37.5 mg] 150 mg PO DAILY 04/27/21 [History] Travel Risk - International Travel Have you traveled outside of the country in past 3 weeks: No - Coronavirus Screening Are you exhibiting any of the following symptoms?: No Close contact with a COVID-19 positive Pt in past 14-21 Days: No - Vaccine Status Have you recieved a Covid-19 vaccination: No - Review of Systems Constitutional: No Symptoms, No Fever, No Chills Eyes: No Symptoms Ears, Nose, & Throat: No Symptoms Respiratory: No Symptoms, No Cough, No Dyspnea Cardiac: No Symptoms, No Chest Pain, No Edema, No Syncope Abdominal/Gastrointestinal: No Symptoms, No Abdominal Pain, No Nausea, No Vomiting, No Diarrhea Genitourinary Symptoms: No Symptoms, No Dysuria Musculoskeletal: No Symptoms, No Back Pain, No Neck Pain Skin: No Symptoms, No Rash Neurological: No Symptoms, No Dizziness, No Focal Weakness, No Sensory Changes Psychological: No Symptoms Endocrine: No Symptoms Hematologic/Lymphatic: No Symptoms Immunological/Allergic: No Symptoms All Other Systems: Reviewed and Negative - Past Medical History Pertinent Past Medical History: Yes Neurological History: Migraines ENT History: No Pertinent History Cardiac History: Hypertension Respiratory History: Asthma Endocrine Medical History: No Pertinent History Musculoskeletal History: Osteoarthritis, Other GI Medical History: No Pertinent History History: No Pertinent History Psycho-Social History: Depression Female Reproductive Disorders: Other Other Medical History: OTHER PMHX: BILATERAL CARPAL TUNNEL (NO SURGERY), RESTLESS LEG, DEPRESSION, PCOS, Bulging disks low back pain - Past Surgical History Past Surgical History: No Neuro Surgical History: No Pertinent History Cardiac: No Pertinent History Respiratory: No Pertinent History Gastrointestinal: No Pertinent History Genitourinary: No Pertinent History Musculoskeletal: No Pertinent History Female Surgical History: No Pertinent History Other Surgical History: medial blocks - Social History Smoking Status: Current some day smoker How long have you smoked: 21 Exposure to second hand smoke: No Drug Use: none Patient Lives Alone: No - Female History Hx Last Menstrual Period: 06/07/21 Hx Now: No - Physical Exam General Appearance: no apparent distress, alert, obese Eye Exam: PERRL/EOMI, eyes nml inspection Ears, Nose, Throat Exam: normal ENT inspection, pharynx normal, moist mucous membranes Neck Exam: normal inspection, non-tender, supple, full range of motion Respiratory Exam: normal breath sounds, lungs clear, airway intact, No respiratory distress Cardiovascular Exam: regular rate/rhythm, normal heart sounds, normal peripheral pulses Gastrointestinal/Abdomen Exam: soft, tenderness (Tenderness palpation right upper quadrant. No guarding.), other (Tenderness palpation right upper quadrant and epigastrium), No mass, No guarding Back Exam: normal inspection, normal range of motion, No CVA tenderness, No vertebral tenderness Extremity Exam: normal inspection, normal range of motion, pelvis stable Neurologic Exam: alert, oriented x 3, cooperative, normal mood/affect, nml cerebellar function, sensation nml, No motor deficits Skin Exam: normal color, warm, dry Lymphatic Exam: No adenopathy SpO2 Interpretation: normal SpO2: 97 O2 Delivery: Room Air - Nursing Vital Signs Nursing Vital Signs: Initial Vital Signs Temperature 97.8 F 06/07/21 03:53 Pulse Rate 94 H 06/07/21 03:53 Respiratory Rate 20 06/07/21 03:53 Blood Pressure 139/96 06/07/21 03:53 O2 Sat by Pulse Oximetry 97 06/07/21 03:53 Pain Scale Pain Intensity 5 - Course Nursing assessment & vital signs reviewed: Yes Ordered Tests: Active Orders 24 hr Category Date Time Status IV Insertion STAT Care 06/07/21 04:37 Active ABDOMEN AND PELVIS W CONTRAST [CT] Stat Exams 06/07/21 04:37 Taken CBC W DIFF Stat Lab 06/07/21 04:37 Completed CMP Stat Lab 06/07/21 04:37 Completed HCG,QUALITATIVE URINE Stat Lab 06/07/21 04:39 Completed LIPASE Stat Lab 06/07/21 04:37 Completed TROPONIN Q3H Lab 06/07/21 04:45 Completed TROPONIN Q3H Lab 06/07/21 07:45 Ordered TROPONIN Q3H Lab 06/07/21 10:45 Ordered TROPONIN Q3H Lab 06/07/21 13:45 Ordered TROPONIN Q3H Lab 06/07/21 16:45 Ordered UA W/RFX UR CULTURE Stat Lab 06/07/21 04:39 Completed Medication Summary Generic Name Dose Route Start Last Admin Trade Name Freq PRN Reason Stop Dose Admin Potassium Chloride 20 meq in 100 mls @ 50 mls/hr 06/07/21 05:47 06/07/21 05:52 Potassium Chloride 20 Meq In Water 100ml IV 06/07/21 07:46 50 mls/hr STAT ONE Administration Sodium Chloride 500 mls @ 100 mls/hr 06/07/21 06:23 06/07/21 06:25 Sodium Chloride 0.9% 500 Ml IV 06/07/21 11:22 100 mls/hr .Q5H ONE Administration Discontinued Medications Generic Name Dose Route Start Last Admin Trade Name Freq PRN Reason Stop Dose Admin Sodium Chloride 1,000 mls @ 999 mls/hr 06/07/21 04:37 06/07/21 07:27 Sodium Chloride 0.9% 1000 Ml IV 06/07/21 05:37 Infused .Q1H1M STA Infusion Sodium Chloride Confirm 06/07/21 04:46 Sodium Chloride 0.9% 1000 Ml Administered 06/07/21 04:47 Dose 1,000 mls @ ud .ROUTE .STK-MED ONE Potassium Chloride Confirm 06/07/21 05:49 Potassium Chloride 20 Meq In Water 100ml Administered 06/07/21 05:50 Dose 100 mls @ ud IV .STK-MED ONE Sodium Chloride Confirm 06/07/21 06:23 Sodium Chloride 0.9% 500 Ml Administered 06/07/21 06:24 Dose 500 mls @ ud IV .STK-MED ONE Morphine Sulfate 2 mg 06/07/21 04:37 06/07/21 04:47 Morphine Sulfate 2 Mg Inj IV 06/07/21 04:38 2 mg STAT ONE Administration Morphine Sulfate 4 mg 06/07/21 04:37 06/07/21 07:28 Morphine Sulfate 4 Mg Inj IV 06/07/21 04:38 Not Given STAT ONE Morphine Sulfate Confirm 06/07/21 04:46 Morphine Sulfate 2 Mg Inj Administered 06/07/21 04:47 Dose 2 mg .ROUTE .STK-MED ONE Morphine Sulfate 4 mg 06/07/21 07:02 06/07/21 07:19 Morphine Sulfate 4 Mg Inj IV 06/07/21 07:03 4 mg STAT ONE Administration Morphine Sulfate Confirm 06/07/21 07:16 Morphine Sulfate 4 Mg Inj Administered 06/07/21 07:17 Dose 4 mg .ROUTE .STK-MED ONE Lab/Rad Data: Laboratory Result Diagrams 06/07/21 04:37 06/07/21 04:37 Laboratory Results 06/07/21 06/07/21 06/07/21 Range/Units 04:45 04:39 04:39 WBC (4.0-10.5) K/mm3 RBC (4.1-5.4) M/mm3 Hgb (12.0-16.0) gm/dl Hct (35-47) % MCV (78-100) fl MCH (26-32) pg MCHC (32-36) g/dl RDW (11.5-14.0) % Plt Count (150-450) K/mm3 MPV (7.5-11.0) fl Gran % (36.0-66.0) % Eos # (Auto) (0-0.5) Absolute Lymphs (auto) (1.0-4.6) Absolute Monos (auto) (0.0-1.3) Lymphocytes % (24.0-44.0) % Monocytes % (0.0-12.0) % Eosinophils % (0.00-5.0) % Basophils % (0.0-0.4) % Absolute Granulocytes (1.4-6.9) Basophils # (0-0.4) Sodium (137-145) mmol/L Potassium (3.5-5.1) mmol/L Chloride (98-107) mmol/L Carbon Dioxide (22-30) mmol/L Anion Gap (5-15) MEQ/L BUN (7-17) mg/dL Creatinine (0.52-1.04) mg/dL Estimated GFR ML/MIN Glucose (74-106) mg/dL Calcium (8.4-10.2) mg/dL Total Bilirubin (0.2-1.3) mg/dL AST (14-36) U/L ALT (0-35) U/L Alkaline Phosphatase (38-126) U/L Troponin I < 0.012 (0.000-0.034) ng/mL Serum Total Protein (6.3-8.2) g/dL Albumin (3.5-5.0) g/dL Lipase (23-300) U/L Urine Color YELLOW (YELLOW) Urine Appearance SLIGHTLY CLOUDY (CLEAR) Urine pH 6.0 (5-6) Ur Specific [place] 1.015 (1.005-1.025) Urine Protein NEGATIVE (Negative) Urine Ketones NEGATIVE (NEGATIVE) Urine Blood LARGE (0-5) Chris/ul Urine Nitrite NEGATIVE (NEGATIVE) Urine Bilirubin NEGATIVE (NEGATIVE) Urine Urobilinogen 2 (0-1) mg/dL Ur Leukocyte Esterase NEGATIVE (NEGATIVE) Urine WBC (Auto) 3-5 (0-5) /HPF Urine RBC (Auto) 26-50 (0-2) /HPF U Epithel Cells (Auto) FEW (FEW) /HPF Urine Bacteria (Auto) RARE (NEGATIVE) /HPF Urine Mucus (Auto) SLIGHT (NEGATIVE) /HPF Urine Culture Reflexed NO (NO) Urine Glucose NEGATIVE (NEGATIVE) mg/dL Urine HCG, Qual NEGATIVE (Negative) 06/07/21 06/07/21 Range/Units 04:37 04:37 WBC 6.5 (4.0-10.5) K/mm3 RBC 4.76 (4.1-5.4) M/mm3 Hgb 13.5 (12.0-16.0) gm/dl Hct 41.9 (35-47) % MCV 88.0 (78-100) fl MCH 28.4 (26-32) pg MCHC 32.2 (32-36) g/dl RDW 14.7 H (11.5-14.0) % Plt Count 313 (150-450) K/mm3 MPV 10.5 (7.5-11.0) fl Gran % 52.8 (36.0-66.0) % Eos # (Auto) 0.42 (0-0.5) Absolute Lymphs (auto) 2.05 (1.0-4.6) Absolute Monos (auto) 0.55 (0.0-1.3) Lymphocytes % 31.7 (24.0-44.0) % Monocytes % 8.5 (0.0-12.0) % Eosinophils % 6.5 H (0.00-5.0) % Basophils % 0.5 (0.0-0.4) % Absolute Granulocytes 3.41 (1.4-6.9) Basophils # 0.03 (0-0.4) Sodium 138 (137-145) mmol/L Potassium 3.2 L (3.5-5.1) mmol/L Chloride 99 (98-107) mmol/L Carbon Dioxide 28 (22-30) mmol/L Anion Gap 14.3 (5-15) MEQ/L BUN 7 (7-17) mg/dL Creatinine 0.84 (0.52-1.04) mg/dL Estimated GFR > 60.0 ML/MIN Glucose 118 H (74-106) mg/dL Calcium 9.4 (8.4-10.2) mg/dL Total Bilirubin 0.70 (0.2-1.3) mg/dL AST 89 H (14-36) U/L ALT 59 H (0-35) U/L Alkaline Phosphatase 73 (38-126) U/L Troponin I (0.000-0.034) ng/mL Serum Total Protein 7.7 (6.3-8.2) g/dL Albumin 4.6 (3.5-5.0) g/dL Lipase 68 (23-300) U/L Urine Color (YELLOW) Urine Appearance (CLEAR) Urine pH (5-6) Ur Specific [place] (1.005-1.025) Urine Protein (Negative) Urine Ketones (NEGATIVE) Urine Blood (0-5) Chris/ul Urine Nitrite (NEGATIVE) Urine Bilirubin (NEGATIVE) Urine Urobilinogen (0-1) mg/dL Ur Leukocyte Esterase (NEGATIVE) Urine WBC (Auto) (0-5) /HPF Urine RBC (Auto) (0-2) /HPF U Epithel Cells (Auto) (FEW) /HPF Urine Bacteria (Auto) (NEGATIVE) /HPF Urine Mucus (Auto) (NEGATIVE) /HPF Urine Culture Reflexed (NO) Urine Glucose (NEGATIVE) mg/dL Urine HCG, Qual (Negative) - Progress Progress: improved Counseled pt/family regarding: lab results, diagnosis, need for follow-up, rad results - Progress Progress Note: Hematuria observed in UA. However patient currently on her menstrual period. 06/07/21 05:38 CT scan pending. Hypokalemia. Potassium rider administered as we are holding off on p.o. due to pending CAT scan results. We reviewed the outpatient gallbladder ultrasound that was performed yesterday. No stones or abnormalities were identified. No indication for repeat ultrasound at this time. If CAT scan negative patient may be discharged home with outpatient primary follow-up. Patient will likely require an outpatient HIDA scan for further evaluation of the gallbladder as patient's pain is the right upper quadrant. Patient endorsed to Dr. Colunga at [phone] for final disposition. 06/07/21 07:06 (DANGELO BHATIA) 06/07/21 07:42 Patient is checked out to me at shift change from Dr. Bhatia with pending CT results. Patient is given symptomatic treatment and given replacement for hypokalemia, on my evaluation patient is pain-free. No peritoneal signs. I reviewed the labs and agree with Dr. Bhatia that patient probably needs outpatient HIDA scan. At present I do not think patient needs to be admitted or any other work-up in the ER and is stable for discharge with outpatient follow-up. To discuss signs symptoms of worsening needing return to ER which she seems understanding. (BRAULIO COLUNGA) - Departure Critical Care Time: No - Departure Clinical Impression: Hypokalemia, Transaminitis Hematuria Qualifiers: Hematuria type: unspecified type Qualified Code(s): R31.9 - Hematuria, unspecified Abdominal pain Qualifiers: Abdominal location: right upper quadrant Qualified Code(s): R10.11 - Right upper quadrant pain Condition: Stable Referrals: EBONY VALDEZ NP [Primary Care Provider] - Follow Up with PCP/3 days () Instructions: Acute Abdomen (Belly Pain), Adult (DC) Additional Instructions: Take Tylenol as needed. Avoid taking ibuprofen/naproxen or any other NSAIDs. Follow-up with primary care for reevaluation and may need outpatient HIDA scan for further evaluation of your gallbladder. Return to ER for worsening pain, intractable vomiting, fever chills etc.
[2021-06-07] MEDS ORDERED: MORPHINE SULFATE 2 MG INJ ONE (04:46)
[2021-06-07] MEDS ORDERED: Sodium Chloride 0.9% 1000 ML 1,000 ML ONE (04:46)
[2021-06-07 04:59] LABS: Absolute Neutrophil Ct (ANC) 3.41 (1.4-6.9); BASOPHIL % 0.5 % (0.0-0.4); Basophil (Absolute #) 0.03 (0-0.4); Eosinophil % 6.5 % (0.00-5.0); Eosinophil (Absolute #) 0.42 (0-0.5); Hematocrit 41.9 % (35-47); Hemoglobin 13.5 gm/dl (12.0-16.0); Lymphocyte (Absolute #) 2.05 (1.0-4.6); Lymphocytes % 31.7 % (24.0-44.0); Mean Corpuscular Hemoglobin 28.4 pg (26-32); Mean Corpuscular Hgb Concent. 32.2 g/dl (32-36); Mean Platelet Volume 10.5 fl (7.5-11.0); Monocyte (Absolute #) 0.55 (0.0-1.3); Monocytes % 8.5 % (0.0-12.0); Neutrophil % 52.8 % (36.0-66.0); Platelet Count 313 K/mm3 (150-450); Red Blood Count 4.76 M/mm3 (4.1-5.4); Red Cell Distribution Width 14.7 % (11.5-14.0); White Blood Count 6.5 K/mm3 (4.0-10.5)
[2021-06-07 05:04] LABS: ALBUMIN 4.6 g/dL (3.5-5.0); ALKALINE PHOSPHATASE 73 U/L (38-126); ANION GAP 14.3 MEQ/L (5-15); BLOOD UREA NITROGEN 7 mg/dL (7-17); CHLORIDE 99 mmol/L (98-107); Calcium 9.4 mg/dL (8.4-10.2); Carbon Dioxide 28 mmol/L (22-30); Creatinine 1 0.84 mg/dL (0.52-1.04); EST GLOMERULAR FILTRATION RATE > 60.0 ML/MIN; Glucose 118 mg/dL (74-106); LIPASE 68 U/L (23-300); Potassium 3.2 mmol/L (3.5-5.1); SGOT/AST 89 U/L (14-36); SGPT/ALT 59 U/L (0-35); SODIUM 138 mmol/L (137-145); Total Protein 7.7 g/dL (6.3-8.2)
[2021-06-07 05:04] LABS: Appearance SLIGHTLY CLOUDY (CLEAR); Bacteria RARE /HPF (NEGATIVE); Bilirubin NEGATIVE (NEGATIVE); Blood LARGE Ery/ul (0-5); Epithelial Cells FEW /HPF (FEW); Glucose NEGATIVE (NEGATIVE); Ketones NEGATIVE (NEGATIVE); Leukocyte Esterase NEGATIVE (NEGATIVE); Mucus SLIGHT /HPF (NEGATIVE); Nitrite NEGATIVE (NEGATIVE); Protein,Urine Dip NEGATIVE (Negative); RBC 26-50 /HPF (0-2); Specific Gravity 1.015 (1.005-1.025); Urobilinogen 2 mg/dL (0-1)
[2021-06-07] MEDS ORDERED: POTASSIUM CHLORIDE 20 mEq IN WATER 100ML 20 MEQ/100 ML BAG IV ONE (05:47)
[2021-06-07] MEDS ORDERED: POTASSIUM CHLORIDE 20 mEq IN WATER 100ML 100 ML IV ONE (05:49)
[2021-06-07] MEDS ORDERED: Sodium Chloride 0.9% 500 ML 500 ML IV ONE ×2 (06:23)
[2021-06-07] MEDS ORDERED: MORPHINE SULFATE 4 MG INJ ONE (07:16)
[2021-06-07] MEDS ORDERED: Klor Con 10 MEQ PO ONE ×2 (07:41→07:54)
--- NOTE | 2021-06-07 09:28 | XRAY ---
Indication: Right upper quadrant and left shoulder pain. Nausea. Multiple contiguous axial images obtained through the abdomen and pelvis using 80 cc Isovue 370 contrast. Comparison: April 27, 2021 Lung bases remain clear. Heart not enlarged. New small hiatal hernia. Noncontrasted stomach and bowel loops nonobstructed with normal air-filled appendix. Again fatty hepatomegaly measuring 19.4 cm and 14 cm splenomegaly. New tampon in situ. No free fluid/air. Remaining liver, gallbladder, pancreas, spleen, adrenal glands, kidneys, ureters, bladder, uterus, and aorta are unremarkable. No pathologic retroperitoneal lymphadenopathy. Osseous structures intact. Impression: 1. New small hiatal hernia and tampon in situ. 2. Again incidental fatty hepatomegaly and splenomegaly. 3. Remaining CT abdomen/pelvis with contrast exam is negative. Comment: Preliminary interpretation made by C. No critical discrepancy.
[2021-06-07 09:32] VITALS: BP 132/85; PULSE 86; O2SAT 98
== END 2021-06-07 08:20 | disposition home or self-care (01) ==
LOC: ED 03:52
DX: E87.6 Hypokalemia (principal); R31.9 Hematuria, unspecified; R10.11 Right upper quadrant pain; R74.01 Elevation of levels of liver transaminase levels
CPT/HCPCS: 36000; 36415; 74177; 80053; 81001; 83690; 84484; 84703; 85025; 96360; 96365; 96374; 96376; 99284; J2270; J3480; A9270-GY

== ENCOUNTER 2021-10-27 01:42 | Emergency (ER) | payer OTHER ==
[2021-10-27] MEDS ORDERED: Sodium Chloride 0.9% 1000 ML 1,000 ML IV STA (02:07)
[2021-10-27] MEDS ORDERED: Hydromorphone 1 mg/ml Injection IV ONE (02:07)
[2021-10-27 02:08] VITALS: O2SAT 94
--- NOTE | 2021-10-27 02:10 | ERPHSYRPT ---
- History of Present Illness Time Seen by Provider: 10/27/21 02:08 Historian: patient Exam Limitations: no limitations Patient Subjective Stated Complaint: to er c/o rlq abd pain onset 1100 on 10/26 states pain increases with movement palpations Triage Nursing Assessment: To er c/o rlq abd pain . pt arrives p/w/d resp easy [id number] Physician History: Patient is 36-year-old female came to the emergency room with right lower quadrant abdominal pain which was started approximately 4 5 hours ago. Patient denies any nausea vomiting urinary trouble diarrhea constipation. Patient did not have any this type of abdominal pain before. Patient has a history of polycystic ovarian syndrome. Patient otherwise does not take any regular medication. Patient is moderately obese. Timing/Duration: today Activities at Onset: none Quality: cramping Abdominal Pain Onset Location: RLQ Pain Radiation: no radiation Severity of Pain-Max: moderate Severity of Pain-Current: moderate Modifying Factors: Improves With: nothing Associated Symptoms: denies symptoms Previous symptoms: no prior history Allergies/Adverse Reactions: No Known Drug Allergies Allergy (Verified 06/07/21 04:09) Home Medications: Ropinirole HCl 0.5 mg [Requip 0.5 MG] 2 mg PO DAILY 01/15/16 [History] Hydrocodone Bit/Acetaminophen [[place] 5/325Mg] 1 each PO TID PRN PRN 11/06/16 [History] Semaglutide [Ozempic] 1 ea WEEKLY 04/27/21 [History] PARoxetine HCl [Paxil] 10 mg PO DAILY 10/27/21 [History] Hx Tetanus, Diphtheria Vaccination/Date Given: Yes Hx Influenza Vaccination/Date Given: No Hx Pneumococcal Vaccination/Date Given: No Travel Risk - International Travel Have you traveled outside of the country in past 3 weeks: No - Coronavirus Screening Are you exhibiting any of the following symptoms?: No Symptoms: Cough: New Onset Close contact with a COVID-19 positive Pt in past 14-21 Days: No - Vaccine Status Have you recieved a Covid-19 vaccination: No - Vaccination Dates Comment: na - Review of Systems Constitutional: No Fever, No Chills Eyes: No Symptoms Ears, Nose, & Throat: No Symptoms Respiratory: No Cough, No Dyspnea Cardiac: No Chest Pain, No Edema, No Syncope Abdominal/Gastrointestinal: Abdominal Pain, No Nausea, No Vomiting, No Diarrhea Genitourinary Symptoms: No Dysuria Musculoskeletal: No Back Pain, No Neck Pain Skin: No Rash Neurological: No Dizziness, No Focal Weakness, No Sensory Changes Psychological: No Symptoms Endocrine: No Symptoms All Other Systems: Reviewed and Negative - Past Medical History Pertinent Past Medical History: Yes Neurological History: Migraines ENT History: No Pertinent History Cardiac History: Hypertension Respiratory History: Asthma Endocrine Medical History: No Pertinent History Musculoskeletal History: Osteoarthritis, Other GI Medical History: No Pertinent History History: No Pertinent History Psycho-Social History: Depression Female Reproductive Disorders: Other Other Medical History: OTHER PMHX: BILATERAL CARPAL TUNNEL (NO SURGERY), RESTLESS LEG, DEPRESSION, PCOS, Bulging disks low back pain - Past Surgical History Past Surgical History: No Neuro Surgical History: No Pertinent History Cardiac: No Pertinent History Respiratory: No Pertinent History Gastrointestinal: No Pertinent History Genitourinary: No Pertinent History Musculoskeletal: No Pertinent History Female Surgical History: No Pertinent History Other Surgical History: medial blocks - Social History Smoking Status: Current some day smoker How long have you smoked: 21 Exposure to second hand smoke: No Drug Use: none Patient Lives Alone: No - Female History Hx Now: No - Nursing Vital Signs Nursing Vital Signs: Initial Vital Signs Temperature 98.0 F 10/27/21 02:03 Pulse Rate 64 10/27/21 02:03 Respiratory Rate 22 10/27/21 02:03 Blood Pressure 169/104 10/27/21 02:03 O2 Sat by Pulse Oximetry 94 L 10/27/21 02:03 Pain Scale Pain Intensity 9 - Physical Exam General Appearance: no apparent distress, alert Eye Exam: PERRL/EOMI, eyes nml inspection Ears, Nose, Throat Exam: normal ENT inspection, pharynx normal, moist mucous membranes Neck Exam: normal inspection, non-tender, supple, full range of motion Respiratory Exam: normal breath sounds, lungs clear, No respiratory distress Cardiovascular Exam: regular rate/rhythm, normal heart sounds Gastrointestinal/Abdomen Exam: soft, tenderness (right lower quadrant), No mass Back Exam: normal inspection, normal range of motion, No CVA tenderness, No vertebral tenderness Extremity Exam: normal inspection, normal range of motion, pelvis stable Neurologic Exam: alert, oriented x 3, cooperative, normal mood/affect, nml cerebellar function, sensation nml, No motor deficits Skin Exam: normal color, warm, dry SpO2: 94 - Course Nursing assessment & vital signs reviewed: Yes - CT Exams Abdomen/Pelvis CT Interpretation: Tele-radiologist Report (no acute changes) Ordered Tests: Active Orders 24 hr Category Date Time Status ABDOMEN AND PELVIS W/0 CONTRAS [CT] Stat Exams 10/27/21 02:07 Taken AMYLASE Stat Lab 10/27/21 02:28 Completed CBC W DIFF Stat Lab 10/27/21 02:28 Completed CMP Stat Lab 10/27/21 02:28 Completed CULTURE,URINE Stat Lab 10/27/21 02:40 Received LIPASE Stat Lab 10/27/21 02:28 Completed UA W/RFX UR CULTURE Stat Lab 10/27/21 02:40 Completed Medication Summary Discontinued Medications Generic Name Dose Route Start Last Admin Trade Name Freq PRN Reason Stop Dose Admin Hydromorphone HCl 1 mg 10/27/21 02:07 10/27/21 02:31 Hydromorphone 1 Mg/1ml Inj 1 Mg/Ml Syringe IV 10/27/21 02:08 1 mg STAT ONE Administration Hydromorphone HCl Confirm 10/27/21 02:11 Hydromorphone 1 Mg/1ml Inj 1 Mg/Ml Syringe Administered 10/27/21 02:12 Dose 1 mg .ROUTE .STK-MED ONE Sodium Chloride 1,000 mls @ 999 mls/hr 10/27/21 02:07 10/27/21 02:31 Sodium Chloride 0.9% 1000 Ml IV 10/27/21 03:07 999 mls/hr .Q1H1M STA Administration Sodium Chloride Confirm 10/27/21 02:11 Sodium Chloride 0.9% 1000 Ml Administered 10/27/21 02:12 Dose 1,000 mls @ ud .ROUTE .STK-MED ONE Lab/Rad Data: Laboratory Result Diagrams 10/27/21 02:28 10/27/21 02:28 Laboratory Results 10/27/21 10/27/21 10/27/21 Range/Units 02:40 02:28 02:28 WBC 5.8 (4.0-10.5) K/mm3 RBC 5.24 (4.1-5.4) M/mm3 Hgb 14.3 (12.0-16.0) gm/dl Hct 43.6 (35-47) % MCV 83.2 (78-100) fl MCH 27.3 (26-32) pg MCHC 32.8 (32-36) g/dl RDW 14.4 H (11.5-14.0) % Plt Count 271 (150-450) K/mm3 MPV 10.2 (7.5-11.0) fl Gran % 54.5 (36.0-66.0) % Eos # (Auto) 0.01 (0-0.5) Absolute Lymphs (auto) 1.90 (1.0-4.6) Absolute Monos (auto) 0.72 (0.0-1.3) Lymphocytes % 32.6 (24.0-44.0) % Monocytes % 12.4 H (0.0-12.0) % Eosinophils % 0.2 (0.00-5.0) % Basophils % 0.3 (0.0-0.4) % Absolute Granulocytes 3.17 (1.4-6.9) Basophils # 0.02 (0-0.4) Sodium 139 (137-145) mmol/L Potassium 3.7 (3.5-5.1) mmol/L Chloride 101 (98-107) mmol/L Carbon Dioxide 27 (22-30) mmol/L Anion Gap 14.0 (5-15) MEQ/L BUN 10 (7-17) mg/dL Creatinine 0.74 (0.52-1.04) mg/dL Estimated GFR > 60.0 ML/MIN Glucose 115 H (74-106) mg/dL Calcium 9.0 (8.4-10.2) mg/dL Total Bilirubin 0.40 (0.2-1.3) mg/dL AST 36 (14-36) U/L ALT 50 H (0-35) U/L Alkaline Phosphatase 50 (38-126) U/L Serum Total Protein 7.7 (6.3-8.2) g/dL Albumin 4.5 (3.5-5.0) g/dL Amylase 41 (30-110) U/L Lipase 74 (23-300) U/L Urine Color YELLOW (YELLOW) Urine Appearance SLIGHTLY CLOUDY (CLEAR) Urine pH 5.0 (5-6) Ur Specific [place] 1.025 (1.005-1.025) Urine Protein 30 (Negative) Urine Ketones NEGATIVE (NEGATIVE) Urine Blood SMALL (0-5) Chris/ul Urine Nitrite NEGATIVE (NEGATIVE) Urine Bilirubin NEGATIVE (NEGATIVE) Urine Urobilinogen NEGATIVE (0-1) mg/dL Ur Leukocyte Esterase NEGATIVE (NEGATIVE) Urine WBC (Auto) 0-2 (0-5) /HPF Urine RBC (Auto) 3-5 (0-2) /HPF U Epithel Cells (Auto) RARE (FEW) /HPF Urine Bacteria (Auto) RARE (NEGATIVE) /HPF Urine Mucus (Auto) SLIGHT (NEGATIVE) /HPF Urine Culture Reflexed YES (NO) Urine Glucose NEGATIVE (NEGATIVE) mg/dL - Progress Progress: improved, pain not gone completely Counseled pt/family regarding: lab results, diagnosis, need for follow-up, rad results - Departure Departure Disposition: Home Clinical Impression: Enlarged liver, History of PCOS Abdominal pain Qualifiers: Abdominal location: right lower quadrant Qualified Code(s): R10.31 - Right lower quadrant pain Ovarian cyst Qualifiers: Laterality: right Qualified Code(s): N83.201 - Unspecified ovarian cyst, right side Condition: Stable Critical Care Time: Yes Critical Care Time(excluding separately billable procedures): Critical 30-74 mins Referrals: EBONY VALDEZ, [facility] [Primary Care Provider] - Follow up/PCP as directed Instructions: Acute Abdomen (Belly Pain), Adult (DC) Additional Instructions: Discharge/Care Plan WHITNEY MARIE was seen on 10/27/21 in the Emergency Room. The patient was counseled regarding Diagnosis,Lab results, Imaging studies, need for follow up and when to return to the Emergency Room. Prescriptions given: Discharge Note I have spoken with the patient and/or caregivers. I have explained the patient's condition, diagnosis and treatment plan based on the information available to me at this time. I have answered the patient's and/or caregiver's questions and addressed any concerns. The patient and/or caregivers have as good understanding of the patient's diagnosis, condition and treatment plan as can be expected at this point. The vital signs have been stable. The patient's condition is stable and appropriate for discharge from the emergency department. The patient will pursue further outpatient evaluation with the primary care physician or other designated or consulting physician as outlined in the discharge instructions. The patient and/or caregivers are agreeable to this plan of care and follow-up instructions have been explained in detail. The patient and/or caregivers have received these instruction. The patient/and or caregivers are aware that any significant change in condition or worsening of symptoms should prompt an immediate return to this or the closest emergency department or call 911. WHITNEY MARIE was seen on 10/27/21 n the Emergency Room. At that time you were treated for an emergent condition, during your visit Laboratory, Radiology and/or other procedures may have been ordered. It is very important that you follow-up with your Primary Care Physician EBONY VALDEZ within the next 24-48 hours to review your Emergency Room visit and the final results of testing that was ordered. Some test results such as Urine Cultures, Blood Cultures, and other cultures if ordered will not be finalized for 24-48 hours. If you do not have a Primary Care Provider please call the medical records department at [phone] ext [phone] to obtain a copy of your results or you may sign into our patient portal to obtain these results by visiting us @ [email or web address] and completing the following steps: 1. Click on the Patient Portal link 2. Click the Patient Self Enrollment Link to complete the enrollment form and entering your 3. Once the enrollment form is completed you will receive an email with a temporary ID and password at the email address you provided. 4. Next choose a user name and password. Your user name must be at least 4 characters long and your password must be at least 4 characters long. 5. Choose a security question from the list and provide your answer to the question. If you already have signed into the Health Portal you may access your Health Care Information 27/04 by the following steps: 1. Login to our website @ [email or web address] 2. Enter your original user name and password. FAQS The [facility] Health Portal is an online tool that contains your Lab Results, Radiology Reports, Visit History, Discharge Instructions and Health Summary Lab and Radiology Results will not be available for 72 hours on the portal. The Portal is a secure site, passwords are encryted and URLs are re-written so they cannot be copied and pasted. You and authorized family members are the only ones who can access your Portal. Also there is a timeout feature that protects your information if you leave the Portal page open. If you have technical difficulty please use the Contact Us link on the page this will allow you to submit any questions you have regarding the Portal or you may contact the Medical Record Department at [phone] ext [phone].
[2021-10-27] MEDS ORDERED: Sodium Chloride 0.9% 1000 ML 1,000 ML ONE (02:11)
[2021-10-27] MEDS ORDERED: Hydromorphone 1 mg/ml Injection ONE (02:11)
[2021-10-27 02:32] LABS: Absolute Neutrophil Ct (ANC) 3.17 (1.4-6.9); Basophil (Absolute #) 0.02 (0-0.4); Eosinophil % 0.2 % (0.00-5.0); Eosinophil (Absolute #) 0.01 (0-0.5); Hematocrit 43.6 % (35-47); Hemoglobin 14.3 gm/dl (12.0-16.0); Lymphocytes % 32.6 % (24.0-44.0); Mean Cell Volume 83.2 fl (78-100); Mean Corpuscular Hemoglobin 27.3 pg (26-32); Mean Corpuscular Hgb Concent. 32.8 g/dl (32-36); Mean Platelet Volume 10.2 fl (7.5-11.0); Monocyte (Absolute #) 0.72 (0.0-1.3); Monocytes % 12.4 % (0.0-12.0); Neutrophil % 54.5 % (36.0-66.0); Platelet Count 271 K/mm3 (150-450); Red Blood Count 5.24 M/mm3 (4.1-5.4); Red Cell Distribution Width 14.4 % (11.5-14.0); White Blood Count 5.8 K/mm3 (4.0-10.5)
[2021-10-27 02:48] LABS: Appearance SLIGHTLY CLOUDY (CLEAR); Bacteria RARE /HPF (NEGATIVE); Bilirubin NEGATIVE (NEGATIVE); Blood SMALL Ery/ul (0-5); Epithelial Cells RARE /HPF (FEW); Glucose NEGATIVE (NEGATIVE); Ketones NEGATIVE (NEGATIVE); Leukocyte Esterase NEGATIVE (NEGATIVE); Mucus SLIGHT /HPF (NEGATIVE); Nitrite NEGATIVE (NEGATIVE); Protein,Urine Dip 30 (Negative); Specific Gravity 1.025 (1.005-1.025); Urobilinogen NEGATIVE mg/dL (0-1); WBC 0-2 /HPF (0-5)
[2021-10-27 02:49] LABS: ALBUMIN 4.5 g/dL (3.5-5.0); ALKALINE PHOSPHATASE 50 U/L (38-126); AMYLASE 41 U/L (30-110); BLOOD UREA NITROGEN 10 mg/dL (7-17); CHLORIDE 101 mmol/L (98-107); Carbon Dioxide 27 mmol/L (22-30); Creatinine 1 0.74 mg/dL (0.52-1.04); EST GLOMERULAR FILTRATION RATE > 60.0 ML/MIN; Glucose 115 mg/dL (74-106); LIPASE 74 U/L (23-300); Potassium 3.7 mmol/L (3.5-5.1); SGOT/AST 36 U/L (14-36); SGPT/ALT 50 U/L (0-35); SODIUM 139 mmol/L (137-145); Total Protein 7.7 g/dL (6.3-8.2)
[2021-10-27 03:13] VITALS: BP 149/94; PULSE 74
--- NOTE | 2021-10-27 08:46 | XRAY ---
Indication: Right lower quadrant pain. Multiple contiguous axial images obtained through the abdomen and pelvis without contrast. Comparison: June 07, 2021. Lung bases remain clear. Heart not enlarged. Stable small hiatal hernia. Noncontrasted stomach and bowel loops nonobstructed again with normal appendix. No free fluid/air. Again fatty hepatomegaly measuring 19.5 cm and 14 cm splenomegaly. Remaining liver, gallbladder, pancreas, spleen, adrenal glands, kidneys, ureters, bladder, uterus, and aorta are unremarkable for noncontrast exam. Osseous structures intact. No ventral or inguinal hernias. Impression: 1. Again small hiatal hernia, fatty hepatomegaly, and splenomegaly. 2. Remaining CT abdomen/pelvis without contrast exam is again negative. Comment: Preliminary interpretation made by C. No critical discrepancy.
== END 2021-10-27 03:38 | disposition home or self-care (01) ==
LOC: ED 01:42
DX: N83.201 Unspecified ovarian cyst, right side (principal); K76.0 Fatty (change of) liver, not elsewhere classified; R10.31 Right lower quadrant pain; I10 Essential (primary) hypertension; Z79.891 Long term (current) use of opiate analgesic; Z72.0 Tobacco use; Z87.42 Personal history of other diseases of the female genital tract
CPT/HCPCS: 36415; 74176; 80053; 81001; 82150; 83690; 85025; 87086; 96374; 99284; 99291; J1170

== ENCOUNTER 2021-11-28 12:40 | Day surgery (SDC) | payer OTHER ==
[2013-06-29 06:40] VITALS: BP 140/78
[2021-11-28] MEDS ORDERED: BUPIVACAINE 0.5% VIAL IJ ONE (12:41)
[2021-11-28] MEDS ORDERED: Xylocaine 1% Vial 30 ML PF IJ ONE (12:41)
[2021-11-28] MEDS ORDERED: Depo-Medrol 40 MG/ML IM ONE (12:41)
[2021-11-28] MEDS ORDERED: Lactated Ringers 1,000 ML IV ONE (14:31)
[2021-11-28] MEDS ORDERED: DIPRIVAN 200 MG/20 ML IV ONE ×2 (14:34→14:44)
--- NOTE | 2021-11-29 09:44 | XRAY ---
Indication: Left SI joint injection. Intraoperative fluoroscopy provided for 12 seconds. 2 digital spot image submitted for interpretation demonstrates posterior needle tip projecting over the inferior left SI joint. Correlate with intraoperative findings/report.
--- NOTE | 2021-11-29 09:48 | XRAY ---
Indication: Left hip injection. Intraoperative fluoroscopy provided for 37 seconds. Single digital spot image obtained prone submitted for interpretation demonstrates needle tip projecting lateral to the left femur neck. Small amount of contrast injected for needle tip placement. Correlate with intraoperative findings/report.
--- NOTE | 2021-11-29 09:59 | XRAY ---
37 seconds fluoroscopy time in surgery for intra-articular injection of the left hip.
--- NOTE | 2021-11-29 09:59 | XRAY ---
12 seconds fluoroscopy time in surgery for injection of the left SI joint.
== END 2021-11-28 15:07 | disposition home or self-care (01) ==
LOC: SDC-PAIN 12:40
PROVIDERS: ATTEND Psychiatry & Neurology Pain Medicine
DX: M46.1 Sacroiliitis, not elsewhere classified (principal); M16.11 Unilateral primary osteoarthritis, right hip; Z79.899 Other long term (current) drug therapy
CPT/HCPCS: 20610; 27096; 72020; 73501; 77002; 84703; G0260; J1030; J2001; J2704; Q9966

== ENCOUNTER 2022-02-08 23:00 | Emergency (ER) | payer OTHER ==
[2022-02-08] MEDS ORDERED: solu-MEDROL 125 MG, Sterile H2O 10 ml 2 ML IM ONE ×2 (23:22)
[2022-02-08] MEDS ORDERED: Sterile H2O 10 ml IJ ONE (23:24)
[2022-02-08] MEDS ORDERED: solu-MEDROL ONE (23:24)
[2022-02-08] MEDS ORDERED: DUONEB 0.5-3 MG/3 ml Neb IH ONE ×2 (23:25→23:36)
[2022-02-08 23:45] VITALS: O2SAT 95
--- NOTE | 2022-02-09 00:02 | ERPHSYRPT ---
- History of Present Illness Time Seen by Provider: 02/08/22 23:01 Source: patient Exam Limitations: no limitations Patient Subjective Stated Complaint: pt states "I think I have pneumonia." Triage Nursing Assessment: pt ambulated into the er; pt is axo x4; c/o cough; pt states 7/10 pain to crystal ribs with coughing; expiratory wheezes present in all lobes; audible wheezing present; afebrile; vitals wnl Physician History: 36-year-old female with history of asthma, tobacco abuse, PCOS, hypertension presented in the ER with 1 week history of progressively worsening cough. Patient reports initially started as a congestion with dry cough and gradually having clear to yellow sputum with increased wheezing with bilateral chest wall soreness. No fever or chills reported. She was seen outpatient yesterday and has taken 1 dose of 40 mg prednisone today. Patient has been using inhaler with no significant relief. She is out of her neb treatments. Timing/Duration: week(s) (1) Cough Quality/Degree: moderate, dry cough, productive cough, sputum Possible Cause: unknown cause Modifying Factors: Improves With: albuterol inhaler. Worsens With: coughing Associated Symptoms: chest pain/soreness, cough, muscle aches, wheezing, No fever, No headache, No nasal congestion, No nasal drainage, No shortness of breath Allergies/Adverse Reactions: No Known Drug Allergies Allergy (Verified 02/08/22 23:06) Home Medications: Ropinirole HCl 0.5 mg [Requip 0.5 MG] 2 mg PO DAILY 01/15/16 [History] Hydrocodone Bit/Acetaminophen [[place] 5/325Mg] 1 each PO TID PRN PRN 11/06/16 [History] Semaglutide [Ozempic] 1 ea WEEKLY 04/27/21 [History] PARoxetine HCl [Paxil] 10 mg PO DAILY 10/27/21 [History] Albuterol Sulfate [Proair Respiclick] 90 mcg IH DAILY 02/08/22 [History] Metformin HCl 500 mg [Glucophage 500 MG] 500 mg PO DAILY 02/08/22 [History] Prednisone 20 mg [Deltasone 20 mg] 20 mg PO DAILY 02/08/22 [History] Hx Tetanus, Diphtheria Vaccination/Date Given: Yes Hx Influenza Vaccination/Date Given: No Hx Pneumococcal Vaccination/Date Given: No Travel Risk - International Travel Have you traveled outside of the country in past 3 weeks: No - Coronavirus Screening Are you exhibiting any of the following symptoms?: Yes Symptoms: Cough: New Onset Close contact with a COVID-19 positive Pt in past 14-21 Days: No - Vaccine Status Have you recieved a Covid-19 vaccination: No - Vaccination Dates Comment: na - Review of Systems Constitutional: No Symptoms Eyes: No Symptoms Ears, Nose, & Throat: No Symptoms Respiratory: Cough, Wheezing, No Dyspnea, No Dyspnea on Exertion (GRACE) Cardiac: No Symptoms Abdominal/Gastrointestinal: No Symptoms Genitourinary Symptoms: No Symptoms Musculoskeletal: No Symptoms Neurological: No Symptoms Psychological: No Symptoms Immunological/Allergic: No Symptoms - Past Medical History Pertinent Past Medical History: Yes Neurological History: Migraines ENT History: No Pertinent History Cardiac History: Hypertension Respiratory History: Asthma Endocrine Medical History: No Pertinent History Musculoskeletal History: Osteoarthritis, Other GI Medical History: No Pertinent History History: No Pertinent History Psycho-Social History: Depression Female Reproductive Disorders: Other Other Medical History: OTHER PMHX: BILATERAL CARPAL TUNNEL (NO SURGERY), RESTLESS LEG, DEPRESSION, PCOS, Bulging disks low back pain - Past Surgical History Past Surgical History: No Neuro Surgical History: No Pertinent History Cardiac: No Pertinent History Respiratory: No Pertinent History Gastrointestinal: No Pertinent History Genitourinary: No Pertinent History Musculoskeletal: No Pertinent History Female Surgical History: No Pertinent History Other Surgical History: medial blocks - Social History Smoking Status: Current some day smoker How long have you smoked: 21 Exposure to second hand smoke: No Drug Use: none Patient Lives Alone: No - Female History Hx Now: No - Nursing Vital Signs Nursing Vital Signs: Initial Vital Signs Temperature 97.8 F 02/08/22 23:09 Pulse Rate 80 02/08/22 23:09 Respiratory Rate 20 02/08/22 23:09 Blood Pressure 143/78 02/08/22 23:09 O2 Sat by Pulse Oximetry 98 02/08/22 23:09 Pain Scale Pain Intensity 5 - Physical Exam General Appearance: no apparent distress, alert Eye Exam: PERRL/EOMI Ears, Nose, Throat Exam: normal ENT inspection, TMs normal, pharyngeal erythema Neck Exam: normal inspection, non-tender, supple, full range of motion Respiratory Exam: rhonchi, wheezing Cardiovascular Exam: regular rate/rhythm, normal heart sounds Gastrointestinal/Abdomen Exam: soft, normal bowel sounds, No tenderness Back Exam: normal inspection, normal range of motion Extremity Exam: normal inspection, normal range of motion Neurologic Exam: alert, oriented x 3, cooperative Skin Exam: normal color SpO2 Interpretation: normal SpO2: 95 O2 Delivery: Room Air Ordered Tests: Active Orders 24 hr Category Date Time Status CHEST 1 VIEW (PORTABLE) Stat Exams 02/08/22 23:23 Taken Respiratory Therapy Assessment DAILY RT 02/08/22 23:34 Active Medication Summary Discontinued Medications Generic Name Dose Route Start Last Admin Trade Name Freq PRN Reason Stop Dose Admin Albuterol/Ipratropium 3 ml 02/08/22 23:25 02/08/22 23:37 Ipratropium/Albuterol Sulfate 3 Ml Ampul.Neb IH 02/08/22 23:26 3 ml STAT ONE Administration Albuterol/Ipratropium Confirm 02/08/22 23:36 Ipratropium/Albuterol Sulfate 3 Ml Ampul.Neb Administered 02/08/22 23:37 Dose 3 ml IH .STK-MED ONE Methylprednisolone Sodium 0 mg 02/08/22 23:22 02/08/22 23:25 Succinate 125 mg/ Sterile IM 02/08/22 23:23 125 mg Water 2 ml STAT ONE Administration Doxycycline Hyclate 100 mg 02/09/22 00:27 02/09/22 00:28 Doxycycline Hyclate 100 Mg Tablet PO 02/09/22 00:28 100 mg STAT ONE Administration Doxycycline Hyclate Confirm 02/09/22 00:26 Doxycycline Hyclate 100 Mg Tablet Administered 02/09/22 00:27 Dose 100 mg .ROUTE .STK-MED ONE Methylprednisolone Sodium Succinate Confirm 02/08/22 23:24 Methylprednis Sod Succ 125 Mg/2 Ml Vial Administered 02/08/22 23:25 Dose 125 mg .ROUTE .STK-MED ONE Sterile Water Confirm 02/08/22 23:24 Water For Injection,Sterile 10 Ml Vial Administered 02/08/22 23:25 Dose 10 ml IJ .STK-MED ONE - Progress Progress: improved Air Movement: good Progress Note: 02/09/22 00:39 She is given breathing treatment and Solu-Medrol, on reevaluation feeling much better. X-ray showed questionable infiltrative process. I believe she has asthma exacerbation with bronchitis, will treat with steroids, nebs and antibi otics. Outpatient follow-up recommended. Discussed signs symptoms of worsening needing return to ER which she seems understanding. Blood Culture(s) Obtained: No Antibiotics given: Yes Counseled pt/family regarding: diagnosis, need for follow-up, rad results - Departure Clinical Impression: Acute bronchitis Condition: Stable Critical Care Time: No Referrals: EBONY VALDEZ NP [Primary Care Provider] - Follow up/PCP as directed (1-2 days for re evaluation) Instructions: Cough, Adult (DC) Additional Instructions: Do not smoke. Neb treatments every 4-6 hour as needed. Follow-up with primary care for reevaluation. Return to ER for any worsening wheezing/cough/difficulty breathing etc. Prescriptions: Prednisone 10 mg [Deltasone 10 mg] 20 mg PO BID 5 Days #10 tablet Albuterol/Ipratropium 3ml Neb* [DUONEB 0.5-3 MG/3 ml Neb] 3 ml IH Q6H PRN 20 Days #60 amp PRN Reason: Shortness Of Breath Doxycycline Hyclate 100 mg [Vibramycin 100 MG] 100 mg PO BID #14 tab
[2022-02-09] MEDS ORDERED: Vibramycin 100 MG ONE (00:26)
[2022-02-09] MEDS ORDERED: Vibramycin 100 MG PO ONE (00:27)
[2022-02-09 00:50] VITALS: BP 126/79; PULSE 75
--- NOTE | 2022-02-09 07:33 | XRAY ---
Indication: Cough. Comparison: April 27, 2021. Portable chest now demonstrates minimal right midlung subsegmental atelectasis/scarring. Remaining heart and lungs unremarkable. Bony thorax intact. No acute findings.
== END 2022-02-09 00:54 | disposition home or self-care (01) ==
LOC: ED 23:00
DX: J20.9 Acute bronchitis, unspecified (principal); J45.901 Unspecified asthma with (acute) exacerbation; R05.9 Cough, unspecified; R09.81 Nasal congestion; R07.89 Other chest pain; I10 Essential (primary) hypertension; Z72.0 Tobacco use; Z79.52 Long term (current) use of systemic steroids; Z79.891 Long term (current) use of opiate analgesic; Z79.899 Other long term (current) drug therapy
CPT/HCPCS: 71045; 94640; 96372; 99284; J2930; A9270-GY

== ENCOUNTER 2022-07-30 14:39 | Day surgery (SDC) | payer OTHER ==
[2013-06-29 06:40] VITALS: BP 140/78
[2022-07-30] MEDS ORDERED: BUPIVACAINE 0.5% VIAL IJ ONE (14:40)
[2022-07-30] MEDS ORDERED: Depo-Medrol 40 MG/ML IM ONE (14:40)
[2022-07-30] MEDS ORDERED: Reglan 10 MG/2 ML IV ONE (15:35)
[2022-07-30] MEDS ORDERED: Pepcid 20 MG VIAL IV SCH (15:35)
[2022-07-30] MEDS ORDERED: Pepcid 20 MG VIAL IV ONE (15:39)
[2022-07-30] MEDS ORDERED: Reglan 10 MG/2 ML ONE (15:39)
[2022-07-30] MEDS ORDERED: DIPRIVAN 200 MG/20 ML IV ONE (17:12)
[2022-07-30] MEDS ORDERED: Lactated Ringers 1,000 ML IV ONE (17:31)
--- NOTE | 2022-07-30 19:21 | XRAY ---
Indication: Bilateral SI joint and left hip injection. Intraoperative fluoroscopy provided for 39 seconds. 6 digital spot image obtained prone submitted for interpretation demonstrates posterior needle tip projecting over the left and right SI joint. Additional needle tip projects lateral to the left femur head with small amount of contrast injected for needle tip placement. Correlate with intraoperative findings/report.
--- NOTE | 2022-07-31 10:47 | XRAY ---
39 seconds of fluoroscopy was used in surgery for a left hip intra-articular injection and bilateral SI joint injections.
== END 2022-07-30 17:40 | disposition home or self-care (01) ==
LOC: SDC-PAIN 14:39
PROVIDERS: ATTEND Psychiatry & Neurology Pain Medicine
DX: M46.1 Sacroiliitis, not elsewhere classified (principal); M16.12 Unilateral primary osteoarthritis, left hip; Z79.899 Other long term (current) drug therapy
CPT/HCPCS: 01992; 20610; 27096; 73501; 77002; 81025; G0260; J1030; J2704; Q9966

== ENCOUNTER 2022-11-12 19:47 | Emergency (ER) | payer OTHER ==
[2022-11-12] MEDS ORDERED: Zofran 4 MG/2 ML VIAL IV ONE ×2 (20:26→23:11)
[2022-11-12] MEDS ORDERED: MORPHINE SULFATE 2 MG INJ IV ONE (20:26)
[2022-11-12] MEDS ORDERED: Sodium Chloride 0.9% 1000 ML 1,000 ML IV SCH (20:30)
[2022-11-12 20:43] LABS: Absolute Neutrophil Ct (ANC) 9.22 x10^3/uL (1.4-6.9); BASOPHIL % 0.5 % (0.0-0.4); Basophil (Absolute #) 0.06 x10^3/uL (0-0.4); Eosinophil % 0.2 % (0.00-5.0); Eosinophil (Absolute #) 0.02 x10^3/uL (0-0.5); Hematocrit 47.3 % (35-47); Hemoglobin 15.3 g/dL (12.0-16.0); IMMATURE GRAN # 0.05 x10^3u/L (0.00-0.03); IMMATURE GRAN % 0.4 % (0.00-0.4); Lymphocyte (Absolute #) 2.61 x10^3/uL (1.0-4.6); Lymphocytes % 20.2 % (24.0-44.0); Mean Cell Volume 87.6 fL (78-100); Mean Corpuscular Hemoglobin 28.3 pg (26-32); Mean Corpuscular Hgb Concent. 32.3 g/dL (32-36); Mean Platelet Volume 10.3 fL (7.5-11.0); Monocyte (Absolute #) 0.93 x10^3/uL (0.0-1.3); Monocytes % 7.2 % (0.0-12.0); Neutrophil % 71.5 % (36.0-66.0); Platelet Count 323 x10^3/uL (150-450); Red Cell Distribution Width 13.7 % (11.5-14.0); White Blood Count 12.9 x10^3/uL (4.0-10.5)
[2022-11-12] MEDS ORDERED: Zofran 4 MG/2 ML VIAL ONE ×2 (20:49→23:14)
[2022-11-12] MEDS ORDERED: MORPHINE SULFATE 2 MG INJ ONE (20:49)
[2022-11-12] MEDS ORDERED: Sodium Chloride 0.9% 1000 ML 1,000 ML ONE (20:50)
[2022-11-12 21:03] LABS: ALBUMIN 4.7 g/dL (3.5-5.0); ALKALINE PHOSPHATASE 59 U/L (38-126); BLOOD UREA NITROGEN 14 mg/dL (7-17); CHLORIDE 103 mmol/L (98-107); Calcium 9.6 mg/dL (8.4-10.2); Carbon Dioxide 26 mmol/L (22-30); Creatinine 1 0.76 mg/dL (0.52-1.04); EST GLOMERULAR FILTRATION RATE > 60.0 ML/MIN; Glucose 105 mg/dL (74-106); LIPASE 47 U/L (23-300); SGOT/AST 36 U/L (14-36); SGPT/ALT 40 U/L (0-35); SODIUM 140 mmol/L (137-145); Total Protein 8.2 g/dL (6.3-8.2)
[2022-11-12 21:04] LABS: Potassium 3.4 mmol/L (3.5-5.1)
[2022-11-12 21:14] LABS: ANION GAP 14.4 MEQ/L (5-15)
--- NOTE | 2022-11-12 21:58 | ERPHSYRPT ---
- History of Present Illness Time Seen by Provider: 11/12/22 21:10 Historian: patient Exam Limitations: no limitations Patient Subjective Stated Complaint: abd pain, diarrhea, nausea, acid reflux Triage Nursing Assessment: pt to ED c/o abd pain, diarrhea, nausea without emesis and acid reflux since 0300 this am. rates 7/10, sharp and stabbing in character. originated on R side abd and now is in mid belly, radiating down to lower abd. reports multiple episodes diarrhea today and has had decreased PO intake due to belly pain. Physician History: Patient is a 37-year-old female presents to the emergency department for evaluation of abdominal pain diarrhea and nausea. Patient also complains of acid reflux that started at 3 AM this morning. Patient's symptoms are progressive. Abdominal pain originated at the right upper quadrant now is at the midline. Pain described as a sharp sensation. No associated chest pain or shortness of breath. No trauma. No fever. Symptoms are moderate in intensity. No specific worsening improving factors. Patient denies a history of the same. She voices no other complaints or concerns at this time. Portions of this note were created with voice recognition technology. There may be grammatical, spelling, punctuation or sound alike errors Timing/Duration: today Activities at Onset: none Quality: sharpness Abdominal Pain Onset Location: RUQ, epigastric Pain Radiation: other (Radiates from right upper quadrant to mid abdomen.) Severity of Pain-Max: moderate Severity of Pain-Current: none Modifying Factors: Improves With: nothing Associated Symptoms: nausea (No vomiting), other (Acid reflux) Previous symptoms: no prior history Allergies/Adverse Reactions: No Known Drug Allergies Allergy (Verified 11/12/22 19:59) Home Medications: Ropinirole HCl 0.5 mg [Requip 0.5 MG] 2 mg PO DAILY 01/15/16 [History] Hydrocodone Bit/Acetaminophen [[place] 5/325Mg] 1 each PO TID PRN PRN 11/06/16 [History] Metformin HCl 500 mg [Glucophage 500 MG] 500 mg PO DAILY 02/08/22 [History] Tirzepatide [Mounjaro] 5 mg SQ WEEKLY 11/12/22 [History] Vortioxetine Hydrobromide [Trintellix] 10 mg PO DAILY 11/12/22 [History] Hx Tetanus, Diphtheria Vaccination/Date Given: Yes Hx Influenza Vaccination/Date Given: No Hx Pneumococcal Vaccination/Date Given: No Immunizations Up to Date: Yes Travel Risk - International Travel Have you traveled outside of the country in past 3 weeks: No - Coronavirus Screening Are you exhibiting any of the following symptoms?: Yes Symptoms: Vomiting/Diarrhea - Vaccine Status Have you recieved a Covid-19 vaccination: No - Vaccination Dates Comment: na - Review of Systems Constitutional: No Symptoms, No Fever, No Chills Eyes: No Symptoms Ears, Nose, & Throat: No Symptoms Respiratory: No Symptoms, No Cough, No Dyspnea Cardiac: No Symptoms, No Chest Pain, No Edema, No Syncope Abdominal/Gastrointestinal: No Symptoms, No Abdominal Pain, No Nausea, No Vomiting, No Diarrhea Genitourinary Symptoms: No Symptoms, No Dysuria Musculoskeletal: No Symptoms, No Back Pain, No Neck Pain Skin: No Symptoms, No Rash Neurological: No Symptoms, No Dizziness, No Focal Weakness, No Sensory Changes Psychological: No Symptoms Endocrine: No Symptoms Hematologic/Lymphatic: No Symptoms Immunological/Allergic: No Symptoms All Other Systems: Reviewed and Negative - Past Medical History Pertinent Past Medical History: Yes Neurological History: Migraines ENT History: No Pertinent History Cardiac History: Hypertension Respiratory History: Asthma Endocrine Medical History: No Pertinent History Musculoskeletal History: Osteoarthritis, Other GI Medical History: No Pertinent History History: No Pertinent History Psycho-Social History: Depression Female Reproductive Disorders: Other Other Medical History: OTHER PMHX: BILATERAL CARPAL TUNNEL (NO SURGERY), RESTLESS LEG, DEPRESSION, PCOS, Bulging disks low back pain - Past Surgical History Past Surgical History: No Neuro Surgical History: No Pertinent History Cardiac: No Pertinent History Respiratory: No Pertinent History Gastrointestinal: No Pertinent History Genitourinary: No Pertinent History Musculoskeletal: No Pertinent History Female Surgical History: No Pertinent History Other Surgical History: medial blocks - Social History Smoking Status: Light tobacco smoker How long have you smoked: 21 Exposure to second hand smoke: No Drug Use: none Patient Lives Alone: No - Female History Hx Last Menstrual Period: 1 yr ago Hx Now: No - Nursing Vital Signs Nursing Vital Signs: Initial Vital Signs Temperature 98 F 11/12/22 19:59 Pulse Rate 82 11/12/22 19:59 Respiratory Rate 20 11/12/22 19:59 O2 Sat by Pulse Oximetry 98 11/12/22 19:59 Pain Scale Pain Intensity 7 - Physical Exam General Appearance: no apparent distress, alert Eye Exam: PERRL/EOMI, eyes nml inspection Ears, Nose, Throat Exam: normal ENT inspection, pharynx normal, moist mucous membranes Neck Exam: normal inspection, non-tender, supple, full range of motion Respiratory Exam: normal breath sounds, lungs clear, No respiratory distress Cardiovascular Exam: regular rate/rhythm, normal heart sounds Gastrointestinal/Abdomen Exam: soft, tenderness (Mild diffuse abdominal tenderness.), other (Abdomen mildly distended.), No mass, No guarding Back Exam: normal inspection, normal range of motion, No CVA tenderness, No vertebral tenderness Extremity Exam: normal inspection, normal range of motion, pelvis stable Neurologic Exam: alert, oriented x 3, cooperative, normal mood/affect, nml cerebellar function, sensation nml, No motor deficits Skin Exam: normal color, warm, dry SpO2 Interpretation: normal SpO2: 98 O2 Delivery: Room Air - Course Nursing assessment & vital signs reviewed: Yes - CT Exams Abdomen/Pelvis CT Interpretation: Tele-radiologist Report (CT abdomen pelvis reveals gallbladder stone versus polyp. Small fat-containing periumbilical hernia. Non specific diarrheal illness.) Ordered Tests: Active Orders 24 hr Category Date Time Status IV Insertion STAT Care 11/12/22 20:26 Active ABDOMEN AND PELVIS W/0 CONTRAS [CT] Stat Exams 11/12/22 20:26 Taken CBC W DIFF Stat Lab 11/12/22 20:40 Completed CMP Stat Lab 11/12/22 20:40 Completed HCG QUALITATIVE,SERUM Stat Lab 11/12/22 23:21 Completed LIPASE Stat Lab 11/12/22 20:40 Completed UA W/RFX UR CULTURE Stat Lab 11/13/22 00:44 Received Medication Summary Generic Name Dose Route Start Last Admin Trade Name Freq PRN Reason Stop Dose Admin Sodium Chloride 1,000 mls @ 100 mls/hr 11/12/22 20:30 11/12/22 20:54 Sodium Chloride 0.9% 1000 Ml IV 12/12/22 20:29 100 mls/hr .Q10H KARISSA Administration Discontinued Medications Generic Name Dose Route Start Last Admin Trade Name Freq PRN Reason Stop Dose Admin Morphine Sulfate 2 mg 11/12/22 20:26 11/12/22 20:54 Morphine Sulfate 2 Mg/Ml Inj IV 11/12/22 20:27 2 mg STAT ONE Administration Morphine Sulfate Confirm 11/12/22 20:49 Morphine Sulfate 2 Mg/Ml Inj Administered 11/12/22 20:50 Dose 2 mg .ROUTE .STK-MED ONE Ondansetron HCl 4 mg 11/12/22 20:26 11/12/22 20:54 Ondansetron Hcl 4 Mg/2 Ml Vial IV 11/12/22 20:27 4 mg STAT ONE Administration Ondansetron HCl Confirm 11/12/22 20:49 Ondansetron Hcl 4 Mg/2 Ml Vial Administered 11/12/22 20:50 Dose 4 mg .ROUTE .STK-MED ONE Ondansetron HCl 4 mg 11/12/22 23:11 11/12/22 23:15 Ondansetron Hcl 4 Mg/2 Ml Vial IV 11/12/22 23:12 4 mg STAT ONE Administration Ondansetron HCl Confirm 11/12/22 23:14 Ondansetron Hcl 4 Mg/2 Ml Vial Administered 11/12/22 23:15 Dose 4 mg .ROUTE .STK-MED ONE Potassium Chloride 40 meq 11/13/22 00:43 11/13/22 00:57 Potassium Chloride Tab 10 Meq Tab PO 11/13/22 00:44 40 meq STAT ONE Administration Potassium Chloride Confirm 11/13/22 00:56 Potassium Chloride Tab 10 Meq Tab Administered 11/13/22 00:57 Dose 40 meq PO .STK-MED ONE Lab/Rad Data: Laboratory Result Diagrams 11/12/22 20:40 11/12/22 20:40 Laboratory Results 11/12/22 11/12/22 11/12/22 Range/Units 23:21 20:40 20:40 WBC 12.9 H (4.0-10.5) x10^3/uL RBC 5.40 (4.1-5.4) x10^6/uL Hgb 15.3 (12.0-16.0) g/dL Hct 47.3 H (35-47) % MCV 87.6 (78-100) fL MCH 28.3 (26-32) pg MCHC 32.3 (32-36) g/dL RDW 13.7 (11.5-14.0) % Plt Count 323 (150-450) x10^3/uL MPV 10.3 (7.5-11.0) fL Gran % 71.5 H (36.0-66.0) % Immature Gran % (Auto) 0.4 (0.00-0.4) % Nucleat RBC Rel Count 0.0 (0.00-0.1) % Eos # (Auto) 0.02 (0-0.5) x10^3/uL Immature Gran # (Auto) 0.05 H (0.00-0.03) x10^3u/L Absolute Lymphs (auto) 2.61 (1.0-4.6) x10^3/uL Absolute Monos (auto) 0.93 (0.0-1.3) x10^3/uL Absolute Nucleated RBC 0.00 (0.00-0.01) x10^3u/L Lymphocytes % 20.2 L (24.0-44.0) % Monocytes % 7.2 (0.0-12.0) % Eosinophils % 0.2 (0.00-5.0) % Basophils % 0.5 (0.0-0.4) % Absolute Granulocytes 9.22 H (1.4-6.9) x10^3/uL Basophils # 0.06 (0-0.4) x10^3/uL Sodium 140 (137-145) mmol/L Potassium 3.4 L (3.5-5.1) mmol/L Chloride 103 (98-107) mmol/L Carbon Dioxide 26 (22-30) mmol/L Anion Gap 14.4 (5-15) MEQ/L BUN 14 (7-17) mg/dL Creatinine 0.76 (0.52-1.04) mg/dL Estimated GFR > 60.0 ML/MIN Glucose 105 (74-106) mg/dL Calcium 9.6 (8.4-10.2) mg/dL Total Bilirubin 0.50 (0.2-1.3) mg/dL AST 36 (14-36) U/L ALT 40 H (0-35) U/L Alkaline Phosphatase 59 (38-126) U/L Serum Total Protein 8.2 (6.3-8.2) g/dL Albumin 4.7 (3.5-5.0) g/dL Lipase 47 (23-300) U/L Serum , Qual NEGATIVE (Negative) - Progress Progress: improved Progress Note: Patient 37-year-old female presents to our ED for evaluation of diarrhea abdominal pain and sensation of acid reflux. Symptoms started today. Physical exam reveals mild diffuse abdominal tenderness. Complaint is acute in nature. Complexity of complaint is moderate. No significant comorbidities contribute to current symptomology. Laboratory work-up includes CBC, CMP, hCG, lipase UA. CT abdomen pelvis ordered as well. Work-up reveals a mild hypokalemia. Potassium 3.4. Patient received morphine and Zofran for pain control and nausea. Normal saline administered for rehydration. Mild leukocytosis observed on CBC. Patient reassessed. She feels much better. States that she is ready for discharge. Plan of care discussed with patient. She agrees to follow-up with her primary care doctor within 48 hours for reevaluation. Level of EM service provided was moderate. Complexity of the problem addressed is moderate. Complexity of data reviewed and analyzed is moderate. Risk of complication and risk of morbidity/mortality of patient management is moderate. Patient served as an independent historian. Time spent during discharging the patient is approximately 10 minutes. No indication for further work-up. Patient voices no other complaints or concerns at this time. Portions of this note were created with voice recognition technology. There may be grammatical, spelling, punctuation or sound alike errors 11/13/22 00:46 UA pending. Patient needed to leave prior to the completion of the urinalysis. However ROXANNE Garner agreed to call patient at home to give her the results. 11/13/22 01:05 Counseled pt/family regarding: lab results, diagnosis, need for follow-up, rad results - Departure Departure Disposition: Home Clinical Impression: Abdominal pain, Distended abdomen, Hypokalemia, Gallstone, Gallbladder polyp, Fat-containing periumbilical hernia, Diarrhea Condition: Stable Critical Care Time: No Referrals: EBONY VALDEZ NP [Primary Care Provider] - Follow up/PCP as directed Instructions: Abdominal Pain, Adult ED
[2022-11-13] MEDS ORDERED: Klor Con PO ONE ×2 (00:43→00:56)
[2022-11-13 01:06] VITALS: BP 108/79; PULSE 80; O2SAT 98
[2022-11-13 01:43] LABS: ADD URINE CULTURE? NO (NO); Appearance Clear (Clear); Bacteria None Seen /HPF (None Seen); Bilirubin Negative (Negative); Blood Negative (Negative); Epithelial Cells Rare /HPF (None Seen); Glucose, Urine Negative (Negative); Hyaline Casts NONE SEEN /LPF (0-2); Ketones Negative (Negative); Leukocyte Esterase Negative (Negative); Nitrite Negative (Negative); Protein,Urine Dip 30 (Negative); Specific Gravity >=1.030 (1.005-1.030); Urobilinogen 0.2 mg/dL (0.2)
--- NOTE | 2022-11-13 09:04 | XRAY ---
Indication: Abdomen and pelvic pain. Nausea and vomiting. Reflux. Multiple contiguous axial images obtained through the abdomen and pelvis without contrast. Comparison: October 27, 2021 Lung bases remain clear. Heart not enlarged. Stable small hiatal hernia. Stomach is distended with food/fluid. Noncontrasted stomach and bowel loops nonobstructed with normal appendix. Colon is now minimal/mild fluid distended favoring diarrhea. Again fatty liver and 13.5 cm splenomegaly. Tiny cul-de-sac fluid presumed physiologic from a ruptured/leaking cyst. No walled off fluid collection or free air. Remaining liver, gallbladder, pancreas, spleen, adrenal glands, kidneys, ureters, bladder, uterus, and aorta are unremarkable for noncontrast exam. Impression: 1. New colonic diarrhea and tiny physiologic cul-de-sac fluid. 2. Again chronic findings including hiatal hernia, fatty liver, and splenomegaly. 3. Remaining CT abdomen/pelvis without contrast exam is negative. Comment: Preliminary interpretation made by C. No critical discrepancy.
== END 2022-11-13 01:04 | disposition home or self-care (01) ==
LOC: ED 19:47
DX: K80.20 Calculus of gallbladder without cholecystitis without obstruction (principal); K82.4 Cholesterolosis of gallbladder; R10.9 Unspecified abdominal pain; R14.0 Abdominal distension (gaseous); E87.6 Hypokalemia; K42.9 Umbilical hernia without obstruction or gangrene; R19.7 Diarrhea, unspecified; R11.0 Nausea; I10 Essential (primary) hypertension; Z79.84 Long term (current) use of oral hypoglycemic drugs; Z79.85 Long-term (current) use of injectable non-insulin antidiabetic drugs; Z79.899 Other long term (current) drug therapy; Z28.310 Unvaccinated for COVID-19; Z72.0 Tobacco use
CPT/HCPCS: 36415; 74176; 80053; 81001; 83690; 84703; 85025; 96374; 96375; 99284; J2270; J2405; A9270-GY

== ENCOUNTER 2022-12-24 11:48 | Day surgery (SDC) | payer OTHER ==
[2013-06-29 06:40] VITALS: BP 140/78
[2022-12-24] MEDS ORDERED: BUPIVACAINE 0.5% VIAL IJ ONE (11:49)
[2022-12-24] MEDS ORDERED: Depo-Medrol 40 MG/ML IM ONE (11:49)
[2022-12-24] MEDS ORDERED: DIPRIVAN 200 MG/20 ML IV ONE ×2 (13:51→13:59)
[2022-12-24] MEDS ORDERED: Lactated Ringers 1,000 ML IV ONE (14:29)
--- NOTE | 2022-12-24 14:47 | XRAY ---
Indication: Bilateral SI joint and left hip injection. Intraoperative fluoroscopy provided for 49 seconds. 4 digital spot image obtained prone submitted for interpretation demonstrates posterior needle tip projecting over the left and right SI joint. Additional needle tip lateral to the left femur neck with small amount of contrast injected for needle tip placement. Correlate with intraoperative findings/report.
--- NOTE | 2022-12-24 14:49 | XRAY ---
49 seconds of fluoroscopy was used in surgery for a bilateral sacroiliac joint and left intra-articular hip injection.
== END 2022-12-24 14:25 | disposition home or self-care (01) ==
LOC: SDC-PAIN 11:48
PROVIDERS: ATTEND Psychiatry & Neurology Pain Medicine
DX: M46.1 Sacroiliitis, not elsewhere classified (principal); M16.12 Unilateral primary osteoarthritis, left hip; Z79.899 Other long term (current) drug therapy
CPT/HCPCS: 01992; 20610; 27096; 73501; 77002; 81025; G0260; J1030; J2704; Q9966

== ENCOUNTER 2023-03-04 06:37 | Day surgery (SDC) | payer OTHER ==
[2013-06-29 06:40] VITALS: BP 140/78
[2023-03-04] MEDS ORDERED: Sodium Chloride 0.9(Preservative Free) 10 ML IJ ONE (06:38)
[2023-03-04] MEDS ORDERED: Depo-Medrol 40 MG/ML IM ONE (06:38)
[2023-03-04 07:06] LABS: HCG URINE TEST NEGATIVE (NEGATIVE)
[2023-03-04] MEDS ORDERED: DIPRIVAN 200 MG/20 ML IV ONE ×2 (08:27→08:39)
--- NOTE | 2023-03-04 10:09 | XRAY ---
Indication: Left L4-S1 transforaminal MIKAELA. Intraoperative fluoroscopy was provided for 44 seconds. 5 digital spot image submitted for interpretation demonstrates posterior needle tips projecting over the expected left L4 and L5 nerve roots. Small amount of contrast injected for needle tip placement. Correlate with intraoperative findings/report.
--- NOTE | 2023-03-04 10:12 | XRAY ---
44 seconds of fluoroscopy was used in surgery for a left L4-S1 transforaminal MIKAELA.
[2023-03-04] MEDS ORDERED: Lactated Ringers 1,000 ML IV ONE (15:10)
== END 2023-03-04 09:05 | disposition home or self-care (01) ==
LOC: SDC-PAIN 06:37
PROVIDERS: ATTEND Psychiatry & Neurology Pain Medicine
DX: M54.16 Radiculopathy, lumbar region (principal); Z79.899 Other long term (current) drug therapy
CPT/HCPCS: 64483; 64484; 72100; 77003; 81025; J1030; J2704; Q9966

== ENCOUNTER 2023-04-02 11:30 | Emergency (ER) | payer OTHER ==
--- NOTE | 2023-04-02 11:31 | ERPHSYRPT ---
- History of Present Illness Time Seen by Provider: 04/02/23 11:31 Source: patient Exam Limitations: no limitations Physician History: This is an obese 37-year-old white female patient who had pain in her right lower jaw yesterday and it was worse this morning. She has dental fractures in her molars on the right side and evidence of infection. Patient is on chronic hydrocodone tablets and her last tablet was at 730 this morning. Patient did drive herself to the emergency department. However, her is here to drive her home and he states he will mushroom picker the car later today. Patient states she did call the dentist office today but she was unable to secure an appointment for today. Timing/Duration: yesterday Severity: mild (To moderate) Associated Symptoms: denies symptoms Allergies/Adverse Reactions: No Known Drug Allergies Allergy (Verified 04/02/23 11:35) Home Medications: Ropinirole HCl 0.5 mg [Requip 0.5 MG] 2 mg PO DAILY 01/15/16 [History] Hydrocodone Bit/Acetaminophen [[place] 5/325Mg] 1 each PO TID PRN PRN 11/06/16 [History] Metformin HCl 500 mg [Glucophage 500 MG] 500 mg PO DAILY 02/08/22 [His tory] Tirzepatide [Mounjaro] 5 mg SQ WEEKLY 11/12/22 [History] Vortioxetine Hydrobromide [Trintellix] 10 mg PO DAILY 11/12/22 [History] Hx Tetanus, Diphtheria Vaccination/Date Given: Yes Hx Influenza Vaccination/Date Given: No Hx Pneumococcal Vaccination/Date Given: No Travel Risk - International Travel Have you traveled outside of the country in past 3 weeks: No - Coronavirus Screening Are you exhibiting any of the following symptoms?: No Close contact with a COVID-19 positive Pt in past 14-21 Days: No - Vaccine Status Have you recieved a Covid-19 vaccination: No - Vaccination Dates Comment: na - Review of Systems Constitutional: No Symptoms Eyes: No Symptoms Ears, Nose, & Throat: Other (Dental pain right upper and lower molars) Respiratory: No Symptoms Cardiac: No Symptoms Abdominal/Gastrointestinal: No Symptoms Genitourinary Symptoms: No Symptoms Musculoskeletal: No Symptoms Skin: No Symptoms Neurological: No Symptoms Psychological: No Symptoms Endocrine: No Symptoms Hematologic/Lymphatic: No Symptoms Immunological/Allergic: No Symptoms All Other Systems: Reviewed and Negative - Past Medical History Pertinent Past Medical History: Yes Neurological History: Migraines ENT History: No Pertinent History Cardiac History: Hypertension Respiratory History: Asthma Endocrine Medical History: No Pertinent History Musculoskeletal History: Osteoarthritis, Other GI Medical History: No Pertinent History History: No Pertinent History Psycho-Social History: Depression Female Reproductive Disorders: Other Other Medical History: OTHER PMHX: BILATERAL CARPAL TUNNEL (NO SURGERY), RESTLESS LEG, DEPRESSION, PCOS, Bulging disks low back pain - Past Surgical History Past Surgical History: No Neuro Surgical History: No Pertinent History Cardiac: No Pertinent History Respiratory: No Pertinent History Gastrointestinal: No Pertinent History Genitourinary: No Pertinent History Musculoskeletal: No Pertinent History Female Surgical History: No Pertinent History Other Surgical History: medial blocks - Social History Smoking Status: Light tobacco smoker How long have you smoked: 21 Exposure to second hand smoke: No Drug Use: none Patient Lives Alone: No - Nursing Vital Signs Nursing Vital Signs: Initial Vital Signs Temperature 96.8 F 04/02/23 11:35 Pulse Rate 70 04/02/23 11:35 Respiratory Rate 17 04/02/23 11:35 Blood Pressure 174/112 04/02/23 11:35 O2 Sat by Pulse Oximetry 97 04/02/23 11:35 Pain Scale Pain Intensity 10 - Physical Exam General Appearance: no apparent distress, alert, anxiety, obese Eye Exam: PERRL/EOMI, eyes nml inspection Ears, Nose, Throat Exam: moist mucous membranes, other (Generalized poor dentition with dental fractures of her right lower molars and upper molars on the right side. There is evidence of dental infection.) Neck Exam: normal inspection, non-tender, supple, full range of motion Respiratory Exam: airway intact, No chest tenderness, No respiratory distress Gastrointestinal/Abdomen Exam: No tenderness Pelvic Exam: not done Rectal Exam: not done Back Exam: normal inspection, normal range of motion, No CVA tenderness, No vertebral tenderness Extremity Exam: normal inspection, normal range of motion, pelvis stable Neurologic Exam: alert, oriented x 3, cooperative, senior construction manager II-XII nml as tested, normal mood/affect, nml cerebellar function, nml station & gait, sensation nml Skin Exam: normal color, warm, dry Lymphatic Exam: No adenopathy SpO2 Interpretation: normal O2 Delivery: Room Air - Course Nursing assessment & vital signs reviewed: Yes Ordered Tests: Medication Summary Generic Name Dose Route Start Last Admin Trade Name Danyel PRN Reason Stop Dose Admin Cephalexin HCl 500 mg 04/02/23 11:57 Cephalexin Mh500 Mg Capsule PO 04/02/23 11:58 STAT ONE Oxycodone/Acetaminophen 1 tab 04/02/23 11:57 Oxycodone Hcl/Apap 5 Mg/325 Mg Tablet PO 04/02/23 11:58 STAT STA - Progress Progress: unchanged, pain not gone completely Progress Note: 04/02/23 12:00 This patient's medical issue is 1 of low complexity. The level of complexity and the work-up performed is based on review of the patient's past medical history, review of the patient's medication list, review of the patient's drug allergy list, history of present illness and physical findings on examination. This patient has dental fractures and dental tenderness as well as dental infection. Patient does not require laboratory radiographic studies. Patient will be given a Percocet 5/325 pain pill here in the emergency department as well as Keflex 500 mg orally now. A prescription for 7 days of Keflex 500 mg 3 times a day will be sent to her pharmacy remotely. She is to follow-up with her dentist for definitive care. Counseled pt/family regarding: diagnosis, need for follow-up Medical Desision Making - Independent Historian Additional History obtained from: Spouse - Diagnostic Testing Diagnostic test were ordered, analyzed, and reviewed by me: No - Risk of complications The pt has a mod risk of morbidity or mortality based on: Need for prescription drug management - Departure Departure Disposition: Home Clinical Impression: Pain due to dental caries, Dental infection Condition: Stable Critical Care Time: No Referrals: EBONY VALDEZ NP [Primary Care Provider] - Follow up/PCP as directed Additional Instructions: Continue your hydrocodone pain medicine as prescribed. If there are no contraindications you 600 mg ibuprofen with food 3 times a day. Call your dentist today to make arrangements for follow-up appointment and definitive care. Take your antibiotics as prescribed Prescriptions: Cephalexin Mh 500 mg [Keflex 500 mg] 500 mg PO TID #21 cap
[2023-04-02] MEDS ORDERED: PERCOCET TABLET 5/325MG ONE (11:59)
[2023-04-02] MEDS ORDERED: KEFLEX 500 MG ONE (11:59)
[2023-04-02] MEDS: KEFLEX 500 MG PO ONE (11:59)
[2023-04-02] MEDS: PERCOCET TABLET 5/325MG PO STA (12:00)
[2023-04-02 12:33] VITALS: BP 188/95; PULSE 76; O2SAT 98
[2023-04-02] MEDS ORDERED: CLONIDINE 0.1 MG TABLET ONE (12:34)
[2023-04-02] MEDS: CLONIDINE 0.1 MG TABLET PO ONE (12:35)
== END 2023-04-02 12:45 | disposition home or self-care (01) ==
LOC: ED 11:30
DX: K02.9 Dental caries, unspecified (principal); K04.7 Periapical abscess without sinus; K08.89 Other specified disorders of teeth and supporting structures; I10 Essential (primary) hypertension; Z79.84 Long term (current) use of oral hypoglycemic drugs; Z79.85 Long-term (current) use of injectable non-insulin antidiabetic drugs; Z79.891 Long term (current) use of opiate analgesic; Z79.899 Other long term (current) drug therapy; Z28.310 Unvaccinated for COVID-19; Z72.0 Tobacco use
CPT/HCPCS: 99282; A9270-GY

== ENCOUNTER 2025-01-07 14:23 | Emergency (ER) | payer BC ==
[2025-01-07 14:42] VITALS: BP 130/68; PULSE 80; RESP 18; TEMP 98; O2SAT 100
--- NOTE | 2025-01-07 15:16 | ERPHSYRPT ---
- History of Present Illness Time Seen by Provider: 01/07/25 15:14 Source: patient Exam Limitations: no limitations Patient Subjective Stated Complaint: C/O right wrist and forearm pain for approx 3 days. Denies any falls or trauma's. Unsure if she injured it, how the injury could have occurred. Triage Nursing Assessment: Patient ambulated back to ER. She is alert and oriented. No skin alterations noted to right wrist/forearm. Slight swelling to posterior forearm. CMS to fingers WNL. Physician History: C/O right wrist and forearm pain for approx 3 days. Denies any falls or trauma's. Unsure if she injured it, how the injury could have occurred. Occurred: last week Method of Injury: unknown Quality: constant Severity of Pain-Max: mild Severity of Pain-Current: mild Extremities Pain Location: forearm: right Modifying Factors: Improves With: nothing Allergies/Adverse Reactions: No Known Drug Allergies Allergy (Verified 01/07/25 14:33) Home Medications: Ropinirole HCl 0.5 mg [Requip 0.5 MG] 2 mg PO DAILY 01/15/16 [History] Hydrocodone Bit/Acetaminophen [Mcroberts 5/325Mg] 1 each PO TID PRN PRN 11/06/16 [History] Metformin HCl 500 mg [Glucophage 500 MG] 500 mg PO DAILY 02/08/22 [History] Tirzepatide [Mounjaro] 5 mg SQ WEEKLY 11/12/22 [History] Vortioxetine Hydrobromide [Trintellix] 10 mg PO DAILY 11/12/22 [History] Hx Tetanus, Diphtheria Vaccination/Date Given: Yes Hx Influenza Vaccination/Date Given: No Hx Pneumococcal Vaccination/Date Given: No Immunizations Up to Date: Yes Travel Risk - International Travel Have you traveled outside of the country in past 3 weeks: No - Emerging Infectious Disease Are you exhibiting symptoms associated with any current EIDs: No - Review of Systems Constitutional: No Symptoms Eyes: No Symptoms Ears, Nose, & Throat: No Symptoms Respiratory: No Symptoms Cardiac: No Symptoms Abdominal/Gastrointestinal: No Symptoms Genitourinary Symptoms: No Symptoms Musculoskeletal: Injury, No Deformity, No Fall Skin: No Symptoms Neurological: No Symptoms - Past Medical History Pertinent Past Medical History: Yes Neurological History: Migraines ENT History: No Pertinent History Cardiac History: Hypertension Respiratory History: Asthma Endocrine Medical History: No Pertinent History Musculoskeletal History: Osteoarthritis, Other GI Medical History: No Pertinent History History: No Pertinent History Psycho-Social History: Depression Female Reproductive Disorders: Other Other Medical History: OTHER PMHX: BILATERAL CARPAL TUNNEL (NO SURGERY), RESTLESS LEG, DEPRESSION, PCOS, Bulging disks low back pain - Past Surgical History Past Surgical History: No Neuro Surgical History: No Pertinent History Cardiac: No Pertinent History Respiratory: No Pertinent History Gastrointestinal: No Pertinent History Genitourinary: No Pertinent History Musculoskeletal: No Pertinent History Female Surgical History: No Pertinent History Other Surgical History: medial blocks - Female History Hx Last Menstrual Period: 1 year ago Hx Now: No - Social History Smoking Status: Light tobacco smoker Exposure to second hand smoke: No Drug Use: none - Social Determinants of Health Will the patient participate in the screening: Declined to provide - Nursing Vital Signs Nursing Vital Signs: Initial Vital Signs Temperature 98 F 01/07/25 14:35 Pulse Rate 80 01/07/25 14:35 Respiratory Rate 18 01/07/25 14:35 Blood Pressure 130/68 01/07/25 14:35 O2 Sat by Pulse Oximetry 100 01/07/25 14:35 Pain Scale Pain Intensity 5 - Physical Exam General Appearance: no apparent distress Eyes, Ears, Nose, Throat Exam: normal ENT inspection Neck Exam: normal inspection Cardiovascular/Respiratory Exam: chest non-tender Abdominal Exam: non-tender Shoulder Exam: normal inspection Elbow/Forearm Exam: soft tissue tenderness (right forearm) Wrist Exam: normal inspection Hand Exam: normal inspection Neuro/Tendon Exam: normal sensation, normal motor functions, normal tendon functions Mental Status Exam: alert, oriented x 3 Skin Exam: normal color SpO2 Interpretation: normal SpO2: 100 O2 Delivery: Room Air - Course Nursing assessment & vital signs reviewed: Yes - Radiology Exams Forearm X-ray Interpretation: Interpreted by me, Reviewed by me, Negative, No Fracture, No Subluxation Ordered Tests: Active Orders 24 hr Category Date Time Status FOREARM Stat Exams 01/07/25 15:09 Taken - Progress Progress: improved, pain not gone completely Counseled pt/family regarding: diagnosis, need for follow-up, rad results Medical Desision Making - Diagnostic Testing Diagnostic test were ordered, analyzed, and reviewed by me: Yes Radiological Interpretation: Interpreted by me, Reviewed by me - Risk of complications Minimal Risk: Minimal risk of morbidity - Departure Departure Disposition: Home Clinical Impression: Contusion of right forearm, initial encounter Condition: Stable Critical Care Time: No Referrals: EBONY VALDEZ, [employer] [Primary Care Provider] - Follow up/PCP as directed Instructions: Contusion (DC) Additional Instructions: Discharge/Care Plan WHITNEY MARIE was seen on 01/07/25 in the Emergency Room. The patient was counseled regarding Diagnosis,Lab results, Imaging studies, need for follow up and when to return to the Emergency Room. Prescriptions given: Discharge Note I have spoken with the patient and/or caregivers. I have explained the patient's condition, diagnosis and treatment plan based on the information available to me at this time. I have answered the patient's and/or caregiver's questions and addressed any concerns. The patient and/or caregivers have as good understanding of the patient's diagnosis, condition and treatment plan as can be expected at this point. The vital signs have been stable. The patient's condition is stable and appropriate for discharge from the emergency department. The patient will pursue further outpatient evaluation with the primary care physician or other designated or consulting physician as outlined in the discharge instructions. The patient and/or caregivers are agreeable to this plan of care and follow-up instructions have been explained in detail. The patient and/or caregivers have received these instruction. The patient/and or caregivers are aware that any significant change in condition or worsening of symptoms should prompt an immediate return to this or the closest emergency department or call 911. WHITNEY MARIE was seen on 01/07/25 n the Emergency Room. At that time you were treated for an emergent condition, during your visit Laboratory, Radiology and/or other procedures may have been ordered. It is very important that you follow-up with your Primary Care Physician EBONY VALDEZ within the next 24-48 hours to review your Emergency Room visit and the final results of testing that was ordered. Some test results such as Urine Cultures, Blood Cultures, and other cultures if ordered will not be finalized for 24-48 hours. If you do not have a Primary Care Provider please call the medical records department at [phone] to obtain a copy of your results or you may sign into our patient portal to obtain these results by visiting us @ [email or web address] and completing the following steps: 1. Click on the Patient Portal link 2. Click the Patient Self Enrollment Link to complete the enrollment form and entering your 3. Once the enrollment form is completed you will receive an email with a temporary ID and password at the email address you provided. 4. Next choose a user name and password. Your user name must be at least 4 characters long and your password must be at least 4 characters long. 5. Choose a security question from the list and provide your answer to the question. If you already have signed into the Health Portal you may access your Health Care Information 27/04 by the following steps: 1. Login to our website @ [email or web address] 2. Enter your original user name and password. FAQS The [facility] Health Portal is an online tool that contains your Lab Results, Radiology Reports, Visit History, Discharge Instructions and Health Summary Lab and Radiology Results will not be available for 72 hours on the portal. The Portal is a secure site, passwords are encryted and URLs are re-written so they cannot be copied and pasted. You and authorized family members are the only ones who can access your Portal. Also there is a timeout feature that protects your information if you leave the Portal page open. If you have technical difficulty please use the Contact Us link on the page this will allow you to submit any questions you have regarding the Portal or you may contact the Medical Record Department at [phone].
--- NOTE | 2025-01-07 20:21 | XRAY ---
Indication: Pain following injury. Comparison: None 2 view right forearm obtained. No bony, articular, or soft tissue abnormalities.
== END 2025-01-07 15:58 | disposition home or self-care (01) ==
LOC: ED 14:23
DX: S50.11XA Contusion of right forearm, initial encounter (principal); M25.531 Pain in right wrist; I10 Essential (primary) hypertension; Z79.84 Long term (current) use of oral hypoglycemic drugs; Z79.85 Long-term (current) use of injectable non-insulin antidiabetic drugs; Z79.899 Other long term (current) drug therapy; Z72.0 Tobacco use
CPT/HCPCS: 73090; 99282; 99283

== ENCOUNTER 2025-02-22 08:43 | Day surgery (SDC) | payer BC ==
[2013-06-29 06:40] VITALS: BP 140/78
[2025-02-22] MEDS ORDERED: dexAMETHasone sodium phosphate IJ ONE (08:44)
[2025-02-22] MEDS ORDERED: LIDOCAINE HCL 1% 50 MG/5 ML VL IJ ONE (08:44)
[2025-02-22 09:12] LABS: HCG URINE TEST NEGATIVE (NEGATIVE)
[2025-02-22] MEDS ORDERED: Lactated Ringers 1,000 ML IV ONE (11:01)
[2025-02-22] MEDS ORDERED: propofoL IV ONE ×2 (11:14→11:30)
[2025-02-22] MEDS ORDERED: MORPHINE SULFATE 2 MG INJ ONE (11:45)
--- NOTE | 2025-02-22 13:04 | XRAY ---
Indication: Left piriformis injection. Intraoperative fluoroscopy provided for 34 seconds. Single digital spot image submitted for interpretation demonstrates posterior needle tip projecting over left piriformis. Small amount of contrast injected for needle tip placement. Correlate with interoperative findings/report.
--- NOTE | 2025-02-22 13:10 | XRAY ---
34 seconds of fluoroscopy were used in surgery for a left piriformis muscle injection.
== END 2025-02-22 12:10 | disposition home or self-care (01) ==
LOC: SDC 08:43
PROVIDERS: ATTEND Psychiatry & Neurology Pain Medicine
DX: M79.18 Myalgia, other site (principal)
CPT/HCPCS: 72170; 81025; J1100; J2270; J2704

== ENCOUNTER 2025-07-14 01:34 | Emergency (ER) | payer BC ==
--- NOTE | 2025-07-14 01:36 | ERPHSYRPT ---
- History of Present Illness Time Seen by Provider: 07/14/25 01:35 Source: patient Exam Limitations: no limitations Physician History: This is an obese 40-year-old white female patient who arrives to the emergency department by private vehicle and is a patient of nurse practitioner Niall. Patient states that she has a migraine headache. She has not had them in a while. She does see a pain specialist but that is primarily for her back pain. Patient has tried [id number] medications including Excedrin migraine headache formulation, the use of ice and heat to the area and even took a half of an Imitrex that belonged to the patient's . Patient has a history of hypertension, asthma, depression, restless leg syndrome and chronic low back pain. Patient has no known drug allergies. Patient does have light sensitivity. She states this is not the worst headache she has ever had. Patient drove herself to the emergency department. She will try to get a ride home. Timing/Duration: day(s) (2) Head Pain Location: frontal (Patient has right eye pain as well), temporal Severity of Pain-Max: moderate Severity of Pain-Current: moderate Recent Head Trauma: no recent headache/trauma Modifying Factors: Improves With: exposure to light, noise Associated Symptoms: sensitive to light, No confusion, No dizziness, No loss of consciousness, No stiff neck, No vision changes, No visual disturbance Previous symptoms: same symptoms as today, no recent treatment Allergies/Adverse Reactions: No Known Drug Allergies Allergy (Verified 07/14/25 01:53) Home Medications: Hydrocodone/Acetaminophen [Hydrocodone-Acetamin 7.5-325] 1 tab PO Q4H 04/17/25 [History] Phentermine HCl [Adipex-P] 37.5 mg PO DAILY 04/17/25 [History] Hx Tetanus, Diphtheria Vaccination/Date Given: Yes Hx Influenza Vaccination/Date Given: No Hx Pneumococcal Vaccination/Date Given: No Travel Risk - International Travel Have you traveled outside of the country in past 3 weeks: No - Emerging Infectious Disease Are you exhibiting symptoms associated with any current EIDs: Yes Symptoms: Abdominal Pain - Review of Systems Constitutional: No Symptoms Eyes: No Symptoms Ears, Nose, & Throat: No Symptoms Respiratory: No Symptoms Cardiac: No Symptoms Abdominal/Gastrointestinal: No Symptoms Genitourinary Symptoms: No Symptoms Musculoskeletal: Joint Redness Skin: No Symptoms Neurological: Headache Psychological: No Symptoms Endocrine: No Symptoms Hematologic/Lymphatic: No Symptoms Immunological/Allergic: No Symptoms All Other Systems: Reviewed and Negative - Past Medical History Pertinent Past Medical History: Yes Neurological History: Migraines ENT History: No Pertinent History Cardiac History: Hypertension Respiratory History: Asthma Endocrine Medical History: No Pertinent History Musculoskeletal History: Osteoarthritis, Other GI Medical History: No Pertinent History History: No Pertinent History Psycho-Social History: Depression Female Reproductive Disorders: Other Other Medical History: OTHER PMHX: BILATERAL CARPAL TUNNEL (NO SURGERY), RESTLESS LEG, DEPRESSION, PCOS, Bulging disks low back pain - Past Surgical History Past Surgical History: No Neuro Surgical History: No Pertinent History Cardiac: No Pertinent History Respiratory: No Pertinent History Gastrointestinal: No Pertinent History Genitourinary: No Pertinent History Musculoskeletal: No Pertinent History Female Surgical History: No Pertinent History Other Surgical History: medial blocks - Female History Hx Last Menstrual Period: 1 year ago - Social History Smoking Status: Light tobacco smoker Exposure to second hand smoke: No Drug Use: none - Social Determinants of Health Will the patient participate in the screening: Declined to provide - Nursing Vital Signs Nursing Vital Signs: Initial Vital Signs Temperature 97.6 F 07/14/25 01:38 Pulse Rate 80 07/14/25 01:38 Respiratory Rate 20 07/14/25 01:38 Blood Pressure 170/108 07/14/25 01:38 O2 Sat by Pulse Oximetry 100 07/14/25 01:38 Pain Scale Pain Intensity 8 - Physical Exam General Appearance: no apparent distress, alert, anxiety, obese Eye Exam: PERRL/EOMI, eyes nml inspection Ears, Nose, Throat Exam: normal ENT inspection, moist mucous membranes Neck Exam: normal inspection, non-tender, supple, full range of motion Respiratory Exam: airway intact, No chest tenderness, No respiratory distress Gastrointestinal/Abdominal Exam: No tenderness Back Exam: normal inspection, normal range of motion, No CVA tenderness, No vertebral tenderness Extremity Exam: normal inspection, normal range of motion, pelvis stable Mental Status Exam: alert, oriented x 3, cooperative professor of art Exam: normal hearing, normal speech, PERRL, tongue midline Coordination/Gait Exam: normal gait, normal cerebellar function Skin Exam: normal color, warm, dry Lymphatic Exam: No adenopathy SpO2 Interpretation: normal O2 Delivery: Room Air - Course Nursing assessment & vital signs reviewed: Yes - Progress Progress: improved, re-examined Air Movement: good Progress Note: 07/14/25 02:02 My medical decision making and the assignment of moderate complexity of this patient's medical issue today is based on review of the patient's past medical history, reviewed patient's medication list, reviewed patient drug allergy list, history presents with physical findings on examination. The workup in this patient does not require any radiographic or laboratory studies. The patient states that this is not the worst headache she has ever had. She has not had a migraine in quite a while. This feels typical for her migraine headaches. Differential diagnosis includes was not limited to migraine headache, hypertensive headache, cluster headache 07/14/25 02:08 Patient states that she cannot obtain a ride home. Therefore, the plan we agreed upon is the patient is to receive Toradol 60 mg intramuscular injection followed by take-home capsule of Benadryl 25 mg and take-home tablet of Compazine 10 mg. She was told specifically by myself and the nurses not to take the Benadryl or Compazine until she gets home Blood Culture(s) Obtained: No Antibiotics given: No Counseled pt/family regarding: diagnosis, need for follow-up Medical Desision Making - Diagnostic Testing Diagnostic test were ordered, analyzed, and reviewed by me: No - Risk of complications Low Risk: Low risk of morbidity from additional dx testing or treatment - Departure Departure Disposition: Home Clinical Impression: Migraine headache Condition: Stable Critical Care Time: No Referrals: EBONY VALDEZ NP [Primary Care Provider, [facility]] - Follow up/PCP as directed Additional Instructions: Take your home medications as prescribed. Call your pain specialist later today, 07/14/2025, to make arrangements for follow-up appointment for further evaluation and management.
[2025-07-14 01:53] VITALS: TEMP 97.6
[2025-07-14 02:04] VITALS: BP 162/112; PULSE 77; RESP 18; O2SAT 97
[2025-07-14] MEDS ORDERED: BENADRYL 25 MG CAPSULE ONE (02:15)
[2025-07-14] MEDS ORDERED: TORAdol 30 mg Injection ONE (02:15)
[2025-07-14] MEDS: TORAdol 30 mg Injection IM ONE (02:16)
[2025-07-14] MEDS: BENADRYL 25 MG CAPSULE PO ONE (02:16)
[2025-07-14] MEDS: Compazine 5 MG PO ONE (02:26)
== END 2025-07-14 02:35 | disposition home or self-care (01) ==
LOC: ED 01:34
DX: G43.909 Migraine, unspecified, not intractable, without status migrainosus (principal); I10 Essential (primary) hypertension; Z79.891 Long term (current) use of opiate analgesic; Z79.899 Other long term (current) drug therapy; Z72.0 Tobacco use